=== PATIENT | female | born 1965 | race Caucasian/White ===

== ENCOUNTER 2024-12-01 15:00 | Outpatient (REF) | payer OTHER, SELFPAY ==
--- NOTE | ~2024-12-01 | XR_ITS ---
EXAMINATION: XR KNEE, RIGHT CLINICAL INFORMATION: M17.11 - Unilateral primary osteoarthritis, right knee COMPARISON: None available. TECHNIQUE: Two views of the right knee. FINDINGS: There is mild loss of the compartment joint space with periarticular spurring in the medial and lateral compartments. No abnormal joint effusion or loose bodies seen. No acute fracture or lytic process. The soft tissues are normal. XR/XR knee RT 2V IMPRESSION: Degenerative changes of the tricompartment without any visible acute fracture or dislocation. Electronically signed by: Mckinley De Guzman MD 12/02/2024 09:42 AM EDT
--- NOTE | ~2024-12-01 | XR_ITS ---
EXAMINATION: XR HIP, LEFT CLINICAL INFORMATION: M16.9 - Osteoarthritis of hip, unspecified COMPARISON: None available. TECHNIQUE: Two views of the left hip. FINDINGS: There is severe loss of left hip joint space with periarticular spurring. No visible acute fracture, dislocation or subluxation seen. The soft tissues are normal. XR/XR hip LT min 2V IMPRESSION: Degenerative changes left hip joint. No visible acute fracture or dislocation seen. Electronically signed by: Mckinley De Guzman MD 12/02/2024 09:44 AM EDT
--- NOTE | ~2024-12-01 | XR_ITS ---
EXAMINATION: Lumbar spine 5 views. CLINICAL INDICATION: Spondylosis without myelopathy or radiculopathy. COMPARISON: None. FINDINGS: There is maintained lumbar lordosis with mild dextroscoliosis mid dorsal spine. There is loss of disc height at L2-3, L3-4 disc levels with moderate spondylosis on the left at the L3-4 disc level. No visible acute fracture, lytic or sclerotic process seen. The soft tissues are normal. Paravertebral soft tissues are normal. SI joints are symmetrical and normal. XR/XR lumbar spine 4V min IMPRESSION: Dextroscoliosis with degenerative disc changes L3-4 and L2-3 disc levels. There is mild spondylosis at these disc levels. No visible acute fracture or dislocation seen. Electronically signed by: Mckinley De Guzman MD 12/02/2024 09:52 AM EDT
== END 2024-12-01 15:01 | disposition home or self-care (01) ==
LOC: HO.XRAY 15:00
PROVIDERS: PCP Internal Medicine; Referring Provider Internal Medicine; Visit Provider Anesthesiology
DX: M16.9 Osteoarthritis of hip, unspecified (principal); M47.816 Spondylosis without myelopathy or radiculopathy, lumbar region; M17.11 Unilateral primary osteoarthritis, right knee; M25.561 Pain in right knee; M16.11 Unilateral primary osteoarthritis, right hip
CPT/HCPCS: 72110; 73502; 73560; 99202

== ENCOUNTER 2024-12-01 15:00 | Outpatient (AMB) | payer OTHER, SELFPAY ==
--- NOTE | 2024-12-01 15:02 | A.OFFVIS_ITS ---
Vital Signs 12/01/24 15:06 Weight 134 lb BP 158/82 H Blood Pressure Location Lt brachial Position Sitting Respiration 20 Pulse 64 Pulse Source Pulse Oximeter Pulse Oximetry (%) 100 Oxygen Delivery Method Room Air Intake Visit Reasons: Hip Pain/Osteoarthritis Elementary Secretary Required: No Allergies latex Allergy (Unknown, Verified 12/01/24 15:08) Rash HPI Comments Details: Mildred is very pleasant 59 years old female who presents in my office with complains on multiple pain generators. She reports pain in posterior neck, she reports pain in the lower back pain in the left hip pain in the right knee pain in bilateral shoulders, pain in the right hand, and pain in the left foot. She also complains on pain in the left index finger. She reports that this pain started decades ago. She does not know what is the cause of the problem. In the distant past she had ACL rupture and sequential repair of the ACL of the right knee. She reports in different areas pain 5/10 and 4/10 to 7/10. Because of her pain she can not sleep normally, she can not do activities of daily living, she is able plus-minus to do take care of herself but she can not function normally. She is currently unemployed. She walks with a cane. Weather changes and motions aggravate her pain. Heat applications cold applications and oral medications like ibuprofen and Tylenol Arthritis helps her pain. In terms of tissue damage he describes her pain as throbbing shooting lancinating sharp pinching cramping hot burning tingling sore hurting aching heavy exhausting sickening fearful spreading radiating and cold sensation. She was prescribed gabapentin 400 mg b.i.d. for her pain as well. She had in the distant past x-rays of the right knee and left hip. She had MRI of the knee but [facility] MRI of the cervical or lumbar spine. She had extensive physical therapy with knee us and chiropractic manipulation for the left hip. It did not help he r pain. She was offered right total knee replacement however she refused because of the social circumstances. She states that she can not receive any help from relatives of friend. She went to [facility] and received serious of platelet rich plasma injections. None of it helps her pain. Her past medical history significant for headaches, fatigue, dizziness and fainting, history of vaginal herpes, mental illness in form of depression and anxiety, history of heart palpitations history of anemia history of kidney stones history of kidney insufficiency. She also suffering from arthritis. Past surgical history significant for colon resection during the prolapse surgery. As mentioned above she had ACL repair in 1999. She also had hardware removed from the ACL on the right. Social history she is not working, she denies smoking cigarettes admits drinking alcohol every day she drinks 1 cup of coffee a day and she denies recreational drugs Review of Systems Const All systems reviewed & are unremarkable except as noted in HPI and below ENT Reports Normal hearing present Neuro Reports Normal hearing present, Denies Abnormal speech present, Denies confusion and Denies Sensory deficit (Neuro) Psych Denies confusion Physical Exam Vital Signs: Last Vital Signs Pulse 64 12/01/24 15:06 Resp 20 12/01/24 15:06 BP 158/82 H 12/01/24 15:06 Pulse Ox 100 12/01/24 15:06 Oxygen Delivery Method Room Air 12/01/24 15:06 Const General: no acute distress; No confusion Orientation/consciousness: patient oriented x3 and No confusion Eyes General: appearance normal, both eyes and all related structures Pupils: Equal, round and reactive pupils present EOM: EOMs intact bilaterally Neck Other: Flexing neck forward and flexing backwards both aggravate the pain however flexing forward aggravate pain more than flexing backwards. Neck: Yes full ROM Chest Chest palpation & inspection: normal inspection of the chest Resp Effort & Inspection: normal respiratory effort, able to speak in complete sentences, normal respiratory pattern, no audible wheezes and no cough Cardio Jugular venous distension: no JVD GI Inspection: Yes normal to inspection Back/Spine/Pelvis Other: Flexing forward demonstrates remarkable flexibility, flexing backwards is painful. Loading test is positive bilaterally. Neuro General: patient oriented x3, gait normal and No confusion Cranial nerves: Yes CN's II-XII intact bilaterally, Yes Equal, round and reactive pupils present, Yes Normal hearing present and Yes Ability to bilaterally elevate shoulders present Speech: No Abnormal speech present Gait exam (Neuro): Normal gait present Motor exam (neuro): 5/5 motor strength present throughout Sensory Exam: No Sensory deficit (Neuro) Extrem General: No pedal edema Psych Speech and movement: Normal speech and movement present Affect: normal affect Attitude: cooperative Thought process: Normal thought process present Thought content: Normal thought content present Insight: Good insight present (Psych) Judgement: Good judgement present (Psych) Assessment & Plan Assessment & Plan (1) Hip osteoarthritis: Code(s): M16.9 - Osteoarthritis of hip, unspecified Category: Medical (2) Osteoarthritis of right knee: Code(s): M17.11 - Unilateral primary osteoarthritis, right knee Category: Medical (3) Right knee pain: Code(s): M25.561 - Pain in right knee Category: Medical (4) Spondylosis of lumbar region without myelopathy or radiculopathy: Code(s): M47.816 - Spondylosis without myelopathy or radiculopathy, lumbar region Category: Medical Plan I will schedule this patient for left hip x-ray, right knee x-ray, and x-ray of the lumbar spine. I will see this patient in 2 weeks. I can offer her therapeutic left hip injection, I can offer her potentially genicular nerve blocks for the right knee, if her right knee will be demonstrating good results from genicular nerve block radiofrequency ablation can not be employed. Alternatively sprint PNS or cure on X PNS can not be offered to the patient. As of her lower back pain 1st start if my suspicion is right that she is suffering from spondylosis of the lumbar spine will be diagnostic medial branch block L3- L4 dorsal ramus L5. Orders: Orders XR hip LT min 2V Today M16.9 - Osteoarthritis of hip, unspecified XR knee RT 3V Today M17.11 - Unilateral primary osteoarthritis, right knee, M25.561 - Pain in right knee XR lumbar spine 4V min Today M47.816 - Spondylosis without myelopathy or radiculopathy, lumbar region Patient Instructions: I here by testify that I spent 45 minutes in conversation with this patient as well as planning her care and organizing this note. Coding Level of Care Code New Pt Level 4 (17999) Diagnoses Hip osteoarthritis M16.9 Osteoarthritis of right knee M17.11 Right knee pain M25.561 Spondylosis of lumbar region without myelopathy or radiculopathy M47.816
[2024-12-01 15:06] VITALS: BP 158/82; PULSE 64; RESP 20; O2SAT 100
--- OUTSIDE RECORDS SUMMARY | 2024-12-01 15:08 | XMS_ITS | Encounter Summary ---
Author Organization [facility], Address [address] [place] [address] Phone Care Team Providers Care Communication Center Coordinator Name Role Phone Amaya Rasmussen MD Primary Care Provider [phone] Encounter Details Date Type Department Care Team (Late st Contact Info) Description 01/16/2023 Documentation Only [facility] [address] [place] [address] [place], [place] [address] [place] [address] Social History Tobacco Use Types Packs/Day Years Used Date Smoking Tobacco: Light Smoker Alcohol Use Standard Drinks/Week Comments Yes 0 (1 standard drink = 0.6 oz pur e alcohol) Comments Unknown Sex and Gender Information Value Date Recorded Sex Assigned at Female 07/15/2020 8:39 AM EST Legal Sex Female 10:43 AM EST Gender Identity Female 07/15/2020 8:39 AM EST Sexual Orientation Choose not to disclose 2022 11:02 AM EDT documented as of this encounter Plan of Treatment Upcoming Encounters Date Type Department Care Team (Late st Contact Info) Description 03/23/2025 3:00 PM EDT Office Visit [facility] [address] [place] [address] Yunior Theodore [address] [place] [address] documented as of this encounter Visit Diagnoses Not on filedocumented in this encounter Care Teams Communication Center Coordinator Relationship Specialty Start Date End Date Amaya Rasmussen MD [address], [address] [place] [address] PCP - General Internal Medicine 12/25/23 documented as of this encounter
== END 2024-12-01 15:40 | disposition home or self-care (01) ==
LOC: HO.PMC 15:00
PROVIDERS: PCP Internal Medicine; Referring Provider Internal Medicine; Visit Provider Anesthesiology
DX: M16.9 Osteoarthritis of hip, unspecified (principal); M17.11 Unilateral primary osteoarthritis, right knee; M25.561 Pain in right knee; M47.816 Spondylosis without myelopathy or radiculopathy, lumbar region
CPT/HCPCS: 99204

== ENCOUNTER → 2024-12-01 15:49 | Outpatient (BNV) | payer OTHER, SELFPAY | PROVIDERS: PCP Internal Medicine; Referring Provider Internal Medicine; Visit Provider Radiology Diagnostic Radiology | DX: M51.369 Other intervertebral disc degeneration, lumbar region without mention of lumbar back pain or lower extremity pain (principal); M16.12 Unilateral primary osteoarthritis, left hip; M17.11 Unilateral primary osteoarthritis, right knee; M41.86 Other forms of scoliosis, lumbar region | CPT/HCPCS: 72110; 73502; 73560 ==

== ENCOUNTER 2024-12-15 12:59 | Outpatient (AMB) | payer OTHER, SELFPAY ==
[2024-12-15 13:03] VITALS: BP 147/77; PULSE 71; RESP 18; O2SAT 99
--- NOTE | 2024-12-15 13:03 | MHC.OFFVIS ---
Vital Signs 12/15/24 13:03 Weight 134 lb BP 147/77 H Blood Pressure Location Lt brachial Position Sitting Respiration 18 Pulse 71 Pulse Source Pulse Oximeter Pulse Oximetry (%) 99 Oxygen Delivery Method Room Air Intake Visit Reasons: [address] Alexander Mothers Helper Required: No Allergies latex Allergy (Unknown, Verified 12/15/24 13:03) Rash HPI Comments Details: Mildred is back in my office to assess the results of the multiple x-rays I sent her for in [facility]. The results of the x-ray dictated as below. In summary she has advanced left hip osteoarthritis, she has [id number] right hip arthritis. She also has on the x-ray of the lumbar spine scoliosis and spondylosis of the lumbar spine. I offered this patient to go for hip replacement. Unfortunately she lives alone and she has multiple cats in her household and she can not trust anyone to take care of them so she can not go for the hip replacement. I offered her then to perform therapeutic intra-articular hip steroid injection just perform it once. Patient agreed to go for this procedure. We also discuss possibility of treatment of her knee with genicular nerve blocks and possibility of treating the knee with the RFA of the genicular nerves however patient is less concerned now about her knee. Prior: She reports pain in posterior neck, she reports pain in the lower back pain in the left hip pain in the right knee pain in bilateral shoulders, pain in the right hand, and pain in the left foot. pain started decades ago. She does not know what is the cause of the problem. In the distant past she had ACL rupture and sequential repair of the ACL of the right knee. She reports in different areas pain 5/10 and 4/10 to 7/10. Heat applications cold applications and oral medications like ibuprofen and Tylenol Arthritis helps her pain. In terms of tissue damage he describes her pain as throbbing shooting lancinating sharp pinching cramping hot burning tingling sore hurting aching heavy exhausting sickening fearful spreading radiating and cold sensation. She was prescribed gabapentin 400 mg b.i.d. for her pain as well. She had in the distant past x-rays of the right knee and left hip. She had MRI of the knee but never MRI of the cervical or lumbar spine. She had extensive physical therapy with knee us and chiropractic manipulation for the left hip. It did not help her pain. She was offered right total knee replacement however she refused because of the social circumstances. She states that she can not receive any help from relatives of friend. She went to [facility] and received series of platelet rich plasma injections. None of it helps her pain. Review of Systems Const All systems reviewed & are unremarkable except as noted in HPI and below ENT Reports Normal hearing present Neuro Reports Normal hearing present, Denies Abnormal speech present, Denies confusion and Denies Sensory deficit (Neuro) Psych Denies confusion Physical Exam Vital Signs: Last Vital Signs Pulse 71 12/15/24 13:03 Resp 18 12/15/24 13:03 BP 147/77 H 12/15/24 13:03 Pulse Ox 99 12/15/24 13:03 Oxygen Delivery Method Room Air 12/15/24 13:03 Const General: no acute distress; No confusion Orientation/consciousness: patient oriented x3 and No confusion Eyes General: appearance normal, both eyes and all related structures Pupils: Equal, round and reactive pupils present EOM: EOMs intact bilaterally Neck Other: Flexing neck forward and flexing backwards both aggravate the pain however flexing forward aggravate pain more than flexing backwards. Neck: Yes full ROM Chest Chest palpation & inspection: normal inspection of the chest Resp Effort & Inspection: normal respiratory effort, able to speak in complete sentences, normal respiratory pattern, no audible wheezes and no cough Cardio Jugular venous distension: no JVD GI Inspection: Yes normal to inspection Back/Spine/Pelvis Other: Flexing forward demonstrates remarkable flexibility, flexing backwards is painful. Loading test is positive bilaterally. Neuro General: patient oriented x3, gait normal and No confusion Cranial nerves: Yes CN's II-XII intact bilaterally, Yes Equal, round and reactive pupils present, Yes Normal hearing present and Yes Ability to bilaterally elevate shoulders present Speech: No Abnormal speech present Gait exam (Neuro): Normal gait present Motor exam (neuro): 5/5 motor strength present throughout Sensory Exam: No Sensory deficit (Neuro) Extrem General: No pedal edema Psych Speech and movement: Normal speech and movement present Affect: normal affect Attitude: cooperative Thought process: Normal thought process present Thought content: Normal thought content present Insight: Good insight present (Psych) Judgement: Good judgement present (Psych) Results Reviewed Results Reviewed: X-ray lumbar spine November 2024. There is maintained lumbar lordosis with mild dextroscoliosis mid dorsal spine. There is loss of disc height at L2-3, L3-4 disc levels with moderate spondylosis on the left at the L3-4 disc level. No visible acute fracture, lytic or sclerotic process seen. The soft tissues are normal. Paravertebral soft tissues are normal. SI joints are symmetrical and normal. XR lumbar spine 4V min IMPRESSION: Dextroscoliosis with degenerative disc changes L3-4 and L2-3 disc levels. There is mild spondylosis at these disc levels. No visible acute fracture or dislocation seen. XR KNEE, RIGHT CLINICAL INFORMATION: M17.11 - Unilateral primary osteoarthritis, right knee COMPARISON: None available. TECHNIQUE: Two views of the right knee. FINDINGS: There is mild loss of the compartment joint space with periarticular spurring in the medial and lateral compartments. No abnormal joint effusion or loose bodies seen. No acute fracture or lytic process. The soft tissues are normal. XR knee RT 2V IMPRESSION: Degenerative changes of the tricompartment without any visible acute fracture or dislocation. - Osteoarthritis of hip, unspecified COMPARISON: None available. TECHNIQUE: Two views of the left hip. FINDINGS: There is severe loss of left hip joint space with periarticular spurring. No visible acute fracture, dislocation or subluxation seen. The soft tissues are normal. XR hip LT min 2V IMPRESSION: Degenerative changes left hip joint. No visible acute fracture or dislocation seen. Assessment & Plan Assessment & Plan (1) Hip osteoarthritis: Code(s): M16.9 - Osteoarthritis of hip, unspecified Category: Medical (2) Osteoarthritis of right knee: Code(s): M17.11 - Unilateral primary osteoarthritis, right knee Category: Medical (3) Right knee pain: Code(s): M25.561 - Pain in right knee Category: Medical (4) Spondylosis of lumbar region without myelopathy or radiculopathy: Code(s): M47.816 - Spondylosis without myelopathy or radiculopathy, lumbar region Category: Medical (5) Osteoarthritis of left hip: Code(s): M16.12 - Unilateral primary osteoarthritis, left hip Category: Medical (6) Left hip pain: Code(s): M25.552 - Pain in left hip Category: Medical Plan Because she lives alone it is hard to offer her anything which could be changing her situation. She can not go for total knee or total hip replacement. Same thing could be said about neuromodulation for this patient. She can not take care of herself while incapacitated. I offered her to perform diagnostic and therapeutic intra-articular hip steroid injection. If she would have good pain relief after this procedure in the left hip I can not repeated until it will stop her pain improvement. She denied in the past possibility of total hip replacement she denied possibility of total knee replacement. In the future we can concentrate on her lower back pain with the diagnostic medial branch block. Patient Instructions: I here by testify that I spent 35 minutes in conversation with this patient as well as evaluating her diagnostic studies as well as planning her care and organizing this note. Coding Level of Care Code Est Pt Level 4 (42292) Diagnoses Hip osteoarthritis M16.9 Osteoarthritis of right knee M17.11 Right knee pain M25.561 Spondylosis of lumbar region without myelopathy or radiculopathy M47.816 Osteoarthritis of left hip M16.12 Left hip pain M25.552
--- OUTSIDE RECORDS SUMMARY | 2024-12-15 14:53 | XMS_ITS | Clinical Summary ---
Author Organization [facility], Address [address] [place] [address] [place] [address] Phone Care Team Providers Care Roll Coverer Name Role Phone Amaya Rasmussen MD Primary Care Provider [phone] Allergies Active Allergy Reactions Criticality Noted Date Comments Cat Dander 07/18/2020 Latex 07/18/2020 Medications No known medications Active Problems Problem Noted Date Diagnosed Date Renal insufficiency 07/18/2020 Stage 3a chronic kidney disease 07/18/2020 Hyperkalemia 07/18/2020 Fibromyalgia Resolved Problems Problem Noted Date Diagnosed Date Resolved Date Vitamin D deficiency 07/18/2020 022 Immunizations Immunization Administration Dates Next Due Influenza, Unspecified 05/03/2020 Family History Medical History Relation Comments Cancer Mother Heart failure Mother Relation Status Comments Mother Social History Tobacco Use Types Packs/Day Years [...] not to disclose 2022 11:02 AM EDT Last Filed Vital Signs Vital Sign Reading Time Taken Comments Blood Pressure 118/74 12/24/2023 2:42 PM EDT Pulse 72 12/24/2023 2:42 PM EDT Temperature - - Respiratory Rate - - Oxygen Saturation - - Inhaled Oxygen Concentration - - Weight - - Height - - Body Mass Index - - Plan of Treatment Upcoming Encounters Date Type Department Care Team (Late st Contact Info) Description 03/23/2025 3:00 PM EDT Office Visit [facility] [address] [place] [address] Yunior Theodore DO [address] [place] [address] Health Maintenance Due Date Last Done Comments Breast Cancer Screening 1965 Pneumococcal Vaccine: 50+ Ye ars (1 of 2 - PCV) 1982 Colorectal Cancer Screening: Annual FOBT 2012 Colorectal Cancer Screening: Colonoscopy 2012 Colorectal Cancer Screening: Sigmoidoscopy 2012 Influenza Vaccine (Season Ended) 2025 05/03/20 20 Hepatitis B Vaccine Aged Out No longe r eligible based on patient's age to complete this topic Insurance [facility] Care Teams Roll Coverer Relationship Specialty Start Date End Date Amaay Rasmussen MD [address], [facility] [address] [place] [address] PCP - General Internal Medicine 12/25/23
== END 2024-12-15 13:29 | disposition home or self-care (01) ==
LOC: HO.PMC 13:00
PROVIDERS: PCP Internal Medicine; Visit Provider Anesthesiology
DX: M16.9 Osteoarthritis of hip, unspecified (principal); M17.11 Unilateral primary osteoarthritis, right knee; M25.561 Pain in right knee; M47.816 Spondylosis without myelopathy or radiculopathy, lumbar region; M16.12 Unilateral primary osteoarthritis, left hip; M25.552 Pain in left hip
CPT/HCPCS: 99214

== ENCOUNTER → 2024-12-15 12:59 | Outpatient (BNVA) | payer OTHER, SELFPAY | PROVIDERS: PCP Internal Medicine; Visit Provider Anesthesiology | DX: M17.11 Unilateral primary osteoarthritis, right knee (principal); M16.0 Bilateral primary osteoarthritis of hip; M25.561 Pain in right knee; M25.552 Pain in left hip; M47.816 Spondylosis without myelopathy or radiculopathy, lumbar region | CPT/HCPCS: 99212 ==

== ENCOUNTER 2025-01-13 13:50 | Outpatient (AMB) | payer OTHER, SELFPAY ==
--- NOTE | 2025-01-13 14:07 | A.OFFVIS_ITS ---
Intake Visit Reasons: New Pt - Left Hip OA Intake Note: Mildred is a 59 year old female who presents today for her left hip pain. she reports that her left hip has been painful for about 1 year now. 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 Her pain has become more consistent. She did QC [employer] that was done in September - this was not significantly helpful. Hx of Left hip dislocation while walking about 30 years ago. She reports that she has had multiple dislocations of hip and shoulders. She also has Scoliosis. Allergies latex Allergy (Unknown, Verified 01/13/25 15:47) Rash HPI HPI New Pt - Left Hip OA: Details: Mildred is a 59-year-old woman who comes in today with a worsening history of left hip pain. It has gotten point where she cane and can not of difficulty. She states that daily activities extremely difficult. She localizes the pain to left groin. She has been having worsening pain now for over the past year. Denies any recent injury. She states she is otherwise healthy. She enjoys walking and taking care of her cats. She has been preoccupied with the prospect of surgery because she is worried that no help her take care of her animals at home but she has found somebody to do that and so is interested in discussing surgical options for alleviation pain. [facility] Medical History (Updated 01/13/25 @ 14:19 by Sinai Amaro [facility]) Amputation of finger Surgical History (Updated 01/13/25 @ 14:19 by Sinai Amaro [facility]) S/P reconstruction of ACL of right knee using hamstring autograft History of eye surgery (~2021) History of colon resection (~2018) Physical Exam Extrem Other: A pleasant woman in no acute distress. She is breathing comfortably on room air and has a antalgic gait with positive Trendelenburg gait on the left. She has p ositive impingement test and a positive Stinchfield. She has 2+ dorsalis pedis pulse. Skin is clean dry and intact and she is firing her EHL/gastrocs/tibialis anterior. Results Reviewed Results Reviewed: I personally reviewed relevant radiographs. Severe osteoarthritis of the left hip with borderline dysplasia/shallow acet abulum Assessment & Plan Assessment & Plan (1) Osteoarthritis of left hip: Code(s): M16.12 - Unilateral primary osteoarthritis, left hip Category: Medical Plan: This is a 59-year-old woman with left hip osteoarthritis. The degenerative changes are severe and she is limited both in daily activities and in her ability to engage in recreational activities. She is relatively healthy individual. She does have a history of partial colon resection at [facility] about 7 years ago and a history of an ACL reconstruction on the right knee. We had a long discussion regarding her limitations and it is clear that she would benefit from arthroplasty and that she is severely limited in her current state. I reviewed her radiographs with her and I reviewed the risks, benefits and alternatives of surgery with her. I discussed the risks benefits and alternatives including but not limited to the risk of pain, infection, stiffness, fracture, dislocation, need for further surgery as well as potential medical complications such as blood clots, pulmonary embolism and cardiac complications. She expressed understanding and we will begin the preoperative clearance process. Coding Level of Care Code New Pt Level 4 (74905) Diagnoses Osteoarthritis of left hip M16.12
== END 2025-01-13 15:02 | disposition home or self-care (01) ==
LOC: HO.HOS 13:50
PROVIDERS: PCP Internal Medicine; Visit Provider Orthopaedic Surgery
DX: M16.12 Unilateral primary osteoarthritis, left hip (principal)
CPT/HCPCS: 99204

== ENCOUNTER → 2025-01-13 13:50 | Outpatient (BNVA) | payer OTHER, SELFPAY | PROVIDERS: PCP Internal Medicine; Visit Provider Orthopaedic Surgery | DX: M16.12 Unilateral primary osteoarthritis, left hip (principal); M25.552 Pain in left hip; M17.11 Unilateral primary osteoarthritis, right knee; M25.561 Pain in right knee; M47.816 Spondylosis without myelopathy or radiculopathy, lumbar region | CPT/HCPCS: 99202; 99212 ==

== ENCOUNTER 2025-01-13 15:05 | Outpatient (AMB) | payer OTHER, SELFPAY ==
[2025-01-13 15:49] VITALS: BP 140/83; PULSE 59; RESP 18; O2SAT 100
--- NOTE | 2025-01-13 15:49 | A.OFFVIS_ITS ---
Vital Signs 01/13/25 15:49 Weight 135 lb BP 140/83 H Blood Pressure Location Lt brachial Position Sitting Respiration 18 Pulse 59 Pulse Source Pulse Oximeter Pulse Oximetry (%) 100 Oxygen Delivery Method Room Air Intake Visit Reasons: Knee Pain Allergies latex Allergy (Unknown, Verified 01/13/25 15:47) Rash HPI Comments Details: Mildred is back in my office for the follow-up. In summary she has advanced left hip osteoarthritis, she has qvoz-rw-skemfcan right hip arthritis. She also has on the x-ray of the lumbar spine scoliosis and spondylosis of the lumbar spine. She is referred to Orthopedic surgery for consideration of hip replacement. She found a way to help her to recover after the procedure. Her social circumstances are very difficult she lives alone. She requested me to schedule her for the genicular nerve block in preparation for RFA, I explained to her that she may address the knee issue to her orthopedic surgery as well. If no treatment will be offered by Orthopedic surgery for her knee I will be glad to perform genicular nerve block and then follow on RFA of her genicular blocks. My offer for genicular nerve block still stands for the patient if the orthopedic surgery decides not to do anything with her knee. Prior: She reports pain in posterior neck, she reports pain in the lower back pain in the left hip pain in the right knee pain in bilateral shoulders, pain in the right hand, and pain in the left foot. pain started decades ago. She does not know what is the cause of the problem. In the distant past she had ACL rupture and sequential repair of the ACL of the right knee. She reports in different areas pain 5/10 and 4/10 to 7/10. Heat applications cold applications and oral medications like ibuprofen and Tylenol Arthritis helps her pain. In terms of tissue damage he describes her pain as throbbing shooting lancinating sharp pinching cramping hot burning tingling sore hurting aching heavy exhausting sickening fearful spreading radiating and cold sensation. She was prescribed gabapentin 400 mg b.i.d. for her pain as well. She had in the distant past x- rays of the right knee and left hip. She had MRI of the knee but never MRI of the cervical or lumbar spine. She had extensive physical therapy with knee us and chiropractic manipulation for the left hip. It did not help her pain. She was offered right total knee replacement however she refused because of the social circumstances. She states that she can not receive any help from relatives of friend. She went to [facility] and received series of platelet rich plasma injections. None of it helps her pain. [facility] Medical History (Updated 01/13/25 @ 14:19 by Sinai Amaro CMA) Amputation of finger Surgical History (Updated 01/13/25 @ 14:19 by Sinai Amaro CMA) S/P reconstruction of ACL of right knee using hamstring autograft History of eye surgery (~2021) History of colon resection (~2018) Review of Systems Const All systems reviewed & are unremarkable except as noted in HPI and below ENT Reports Normal hearing present Neuro Reports Normal hearing present, Denies Abnormal speech present, Denies confusion and Denies Sensory deficit (Neuro) Psych Denies confusion Physical Exam Vital Signs: Last Vital Signs Pulse 59 01/13/25 15:49 Resp 18 01/13/25 15:49 BP 140/83 H 01/13/25 15:49 Pulse Ox 100 01/13/25 15:49 Oxygen Delivery Method Room Air 01/13/25 15:49 Const General: no acute distress; No confusion Orientation/consciousness: patient oriented x3 and No confusion Eyes General: appearance normal, both eyes and all related structures Pupils: Equal, round and reactive pupils present EOM: EOMs intact bilaterally Neck Other: Flexing neck forward and flexing backwards both aggravate the pain however flexing forward aggravate pain more than flexing backwards. Neck: Yes full ROM Chest Chest palpation & inspection: normal inspection of the chest Resp Effort & Inspection: normal respiratory effort, able to speak in complete sentences, normal respiratory pattern, no audible wheezes and no cough Cardio Jugular venous distension: no JVD GI Inspection: Yes normal to inspection Back/Spine/Pelvis Other: Flexing forward demonstrates remarkable flexibility, flexing backwards is painful. Loading test is positive bilaterally. Neuro General: patient oriented x3, gait normal and No confusion Cranial nerves: Yes CN's II-XII intact bilaterally, Yes Equal, round and reactive pupils present, Yes Normal hearing present and Yes Ability to bilaterally elevate shoulders present Speech: No Abnormal speech present Gait exam (Neuro): Normal gait present Motor exam (neuro): 5/5 motor strength present throughout Sensory Exam: No Sensory deficit (Neuro) Extrem General: No pedal edema Psych Speech and movement: Normal speech and movement present Affect: normal affect Attitude: cooperative Thought process: Normal thought process present Thought content: Normal thought content present Insight: Good insight present (Psych) Judgement: Good judgement present (Psych) Assessment & Plan Assessment & Plan (1) Hip osteoarthritis: Code(s): M16.9 - Osteoarthritis of hip, unspecified Category: Medical (2) Osteoarthritis of right knee: Code(s): M17.11 - Unilateral primary osteoarthritis, right knee Category: Medical (3) Right knee pain: Code(s): M25.561 - Pain in right knee Category: Medical (4) Spondylosis of lumbar region without myelopathy or radiculopathy: Code(s): M47.816 - Spondylosis without myelopathy or radiculopathy, lumbar region Category: Medical (5) Osteoarthritis of left hip: Code(s): M16.12 - Unilateral primary osteoarthritis, left hip Category: Medical (6) Left hip pain: Code(s): M25.552 - Pain in left hip Category: Medical Plan She found the way to adjust her life circumstances and she is admitted for total hip replacement. She is asking me to perform some injections for her knee at this time however it is quite on practical to go for diagnostic genicular nerve block because if I will put a booking order now it will be scheduled approximately in 2-3 months and this is exactly the time when she is scheduled to have a surgery on her hip. I explained to her that she needs to come back after hip surgery and we will perform genicular nerve block. Alternatively she may discuss her knee condition with her orthopedic surgeon as well. I explained to her that any decision she will make I will support. Coding Level of Care Code Est Pt Level 3 (17956) Diagnoses Hip osteoarthritis M16.9 Osteoarthritis of right knee M17.11 Right knee pain M25.561 Spondylosis of lumbar region without myelopathy or radiculopathy M47.816 Osteoarthritis of left hip M16.12 Left hip pain M25.552
--- OUTSIDE RECORDS SUMMARY | 2025-01-13 15:50 | XMS_ITS | Encounter Summary ---
Author Organization [facility], Address [address] [place] [address] Phone Care Team Providers Care Gate Mortiser Operator Name Role Phone Amaya Rasmussen MD Primary Care Provider [phone] Encounter Details Date Type Department Care Team (Late st Contact Info) Description 01/16/2023 Documentation Only [facility] [address] [place] [address] [place] [address] [place] [address] Social History Tobacco Use Types [...] Visit [facility] [address] [place] [address] Yunior Theodore [address] [place] [address] documented as of this encounter Visit Diagnoses Not on filedocumented in this encounter Care Teams Gate Mortiser Operator Relationship Specialty Start Date End Date Amaya Rasmussen MD [address], [address] [address] [place] [address] PCP - General Internal Medicine 12/25/23 documented as of this encounter
== END 2025-01-13 15:53 | disposition home or self-care (01) ==
LOC: HO.PMC 15:05
PROVIDERS: PCP Internal Medicine; Visit Provider Anesthesiology
DX: M25.561 Pain in right knee (principal); M47.816 Spondylosis without myelopathy or radiculopathy, lumbar region; M16.12 Unilateral primary osteoarthritis, left hip; M25.552 Pain in left hip
CPT/HCPCS: 99213

== ENCOUNTER 2025-02-22 14:00 | Outpatient (RCR) | payer OTHER, SELFPAY ==
--- NOTE | 2025-02-07 11:54 | MHC.PT.EP ---
[facility] [place] Office [place] Office [place] Office [address] [phone] F: [phone] F: [phone] F: [phone] F: [phone] Physical Therapy Plan of Care Date of Evaluation: 02/07/25 Date of Surgery: n/a Diagnosis: unilateral OA L hip prehab Assessment: Patient is a 59 year old female presenting to PT with complaints of pain in her L hip. Pt reports onset of pain began over a year ago due to insidious onset. She presents today with impairments in pain, hip ROM, hip strength. Pt's current occupation is none, with baseline physical activities including ambulating, stair negotiation, ADLs. 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 Clinical presentation today is most consistent with signs and sx associated with L hip pain and pt will benefit from skilled PT 1 week x 2 weeks to address the following problems and impairments noted upon evaluation: pain, hip ROM, hip strength. These problems limit the patient with the following functional activities: ambulating, stair negotiation, ADLs. The prescribed treatment plan of care is medically necessary. Co-morbidities of none were identified and taken into considerations of plan of care. Pt was educated on HEP, role of PT, prognosis, POC. Frequency and Duration: The patient will be seen 1 x week x 2 weeks Short Term Goals: Pt will be compliant with initial exercises in 1 week. Assisted Goals: Pt will demonstrate understanding and compliance with HEP to continue until surgery in 2 weeks to maximize strength before surgery. Treatment Plan: Modalities to reduce pain, spasms and effusion. Manual therapy to restore motion and function. Therapeutic exercise to improve strength and flexibility. Neuromuscular re-education for posture and balance. Therapeutic activities to return to functional activities of daily living. Electronically signed by: Maine Rowe, PT, DPT, ATC Please sign and return to therapist. Thank you for your referral.
--- NOTE | 2025-02-22 14:23 | MHC.PT.DC ---
[facility] [place] Office [place] Office [place] Office [address] [phone] F: [phone] F: [phone] F: [phone] F: [phone] Physical Therapy Discharge Report Diagnosis: unilateral OA L hip prehab Date of Surgery: n/a Date of Evaluation: 02/07/25 Date of Discharge: 02/22/25 Treatments to Date: 2 Cancellations to Date: 1 No Shows to Date: 0 Discharge Status: Recommend MD Follow-up Discharge Summary: 02/22/2025: Pt is significantly limited by pain with the amount of exercise she can participate in. She cannot complete many reps with any exercise often not even being able to complete more than 10 reps of any exercise. She is in need of a hip replacement and is planning to get this in the coming months. Based on her lack of tolerance to exercise it does not seem appropriate to continue with PT at this time as it is causing her more pain. I recommend to her to continue with some low level walking and small amounts of strengthening as she tolerates up until her surgery. I also educated her that she should consider using a walker prior to surgery to maximize her safety with walking as she admits she has had a couple falls. We will d/c her from skilled PT at this time and anticipate her returning after her total hip replacement. Electronically signed by: Maine Rowe, PT, DPT, ATC Please sign and return to therapist. Thank you for your referral.
== END 2025-02-22 14:24 | disposition home or self-care (01) ==
LOC: HO.PTCHIC 14:00
PROVIDERS: PCP Internal Medicine; Visit Provider Physician Assistant
DX: M16.12 Unilateral primary osteoarthritis, left hip (principal)
CPT/HCPCS: 97110; 97161

== ENCOUNTER → 2025-03-11 09:03 | Outpatient (BNVA) | payer OTHER, SELFPAY | PROVIDERS: PCP Internal Medicine | DX: Z01.818 Encounter for other preprocedural examination (principal) ==

== ENCOUNTER 2025-04-07 08:10 | Outpatient (REF) | payer OTHER, SELFPAY ==
--- NOTE | ~2025-04-07 | XR_ITS ---
EXAMINATION: XR HIP, LEFT CLINICAL INFORMATION: M25.552 - Pain in left hip COMPARISON: 07/03/2024. TECHNIQUE: AP view of the pelvis, and 2 views of the left hip. FINDINGS: No fracture, dislocation, or suspicious bone lesion. There is normal alignment of both joints. There is severe osteoarthrosis of the left hip joint with superior joint space loss and [id number] appearance, subchondral sclerosis and cystic changes with marginal osteophytic spurring. There appears to have been mild progression since the prior examination. Moderate osteoarthrosis of the right hip joint. Right convex lumbar scoliosis is present with degenerative spondylosis. The SI joints and sacrum appear normal. There are anastomotic suture lines in the left mid pelvis. There is an abutting surgical staple. Soft tissues otherwise appear normal. XR/XR hip LT min 2V IMPRESSION: 1. Severe osteoarthrosis of the LEFT hip joint, mildly progressed from the prior examination. 2. Moderate osteoarthrosis of the RIGHT hip joint. Electronically signed by: Trenton Renee MD 04/07/2025 11:45 AM EDT
[2025-04-07 12:34] LABS: MANUAL DIFF FLAG NO
[2025-04-07 14:09] LABS: Hematocrit 41.5 % (37.0-47.0); Hemoglobin 13.7 g/dl (12.0-16.0); Imm Gran Abs Auto 0.02 X10*3/uL (0.00-0.03); Imm Gran Pct Auto 0.2 % (0.0-0.4); Lymphocytes Absolute Auto 2.0 X10*3/uL (1.2-4.9); Mean Corpuscular HGB Conc 33.0 g/dl (31.0-35.0); Mean Corpuscular Hemoglobin 31.4 pg (27.0-33.0); Mean Corpuscular Volume 95.0 fL (80.0-98.0); NRBC Abs Auto 0.000 X10*3/uL (0.0-0.012); NRBC Pct Auto 0.0 /100WBC (0.0-0.2); Platelet Count 298 X10*3/uL (160-400); Red Blood Count 4.37 X10*6/uL (4.20-5.50); White Blood Count 8.7 X10*3/uL (4.8-10.8)
[2025-04-07 14:31] LABS: Anion Gap 13 (12-20); Blood Urea Nitrogen 13 mg/dL (9-16); Calcium 9.6 mg/dL (8.4-10.2); Carbon Dioxide 28 mmol/L (22-29); Chloride 107 mmol/L (96-108); Estimated Glomerular Filt Rate 52; Potassium 4.5 mmol/L (3.3-5.1); Sodium 143 mmol/L (135-145)
== END 2025-04-07 08:11 | disposition home or self-care (01) ==
LOC: HO.HOSX 08:10
PROVIDERS: Visit Provider Physician Assistant
DX: Z01.818 Encounter for other preprocedural examination (principal); M16.12 Unilateral primary osteoarthritis, left hip
CPT/HCPCS: 36415; 73502; 80048; 85025; 99212

== ENCOUNTER 2025-04-07 11:27 | Outpatient (AMB) | payer OTHER, SELFPAY ==
--- NOTE | 2025-04-07 10:42 | A.OFFVIS_ITS ---
Vital Signs 3 04/07/25 11:42 Height 5 ft 6.5 in Weight 135 lb BMI 21.5 Intake Visit Reasons: Pre-Op: L JAZMÍN w/NE 04/12/25 Intake Note: Mildred is a 59 year old female who presents today for a pre-operative visit to discuss LT JAZMÍN scheduled with Dr. Coto on 04/12/25. Pain management agreement reviewed and signed. Allergies latex Allergy (Unknown, Verified 04/07/25 11:42) Rash oxycodone Allergy (Verified 04/07/25 11:42) Shakiness prednisone Allergy (Verified 04/07/25 11:42) Agitated Medication List - Last Reconciled 04/11/25 by Brad Colmenares PA-C acetaminophen ER (Pain Relief (acetaminophen)) 650 mg PO BID cholecalciferol (vitamin D3) 25 mcg PO DAILY clonazepam 0.25 mg PO DAILY PRN [Folding Front Wheeled walker Duration: 99 days] gabapentin 400 mg PO BID ibuprofen 400 mg PO Q6H PRN melatonin 5 mg PO BEDTIME PRN multivitamin 1 tab PO DAILY [Raised toilet seat duration - 99 days] [SHOWER CHAIR DURATION: LIFETIME] HPI Comments Details: Ms Snow presents to the office today for Orthopedic Pre op clearance. She is scheduled for a left total hip arthroplasty with Dr. Coto on 04/12/2025. She has been experiencing left hip pain for little over a year. 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 She had PRP injections in her hip without relief. H/o colon resection Patient lives in a 1 level home with 2 cats. PCP clearance obtained : [facility] Medical History (Updated 03/08/25 @ 10:48 by Amelie Emanuel RN) Arthritis Back pain Kidney stones History of vitamin D deficiency Paresthesias Depression Memory impairment Anxiety Former tobacco use Fibromyalgia CKD (chronic kidney disease) Borderline personality disorder Optic neuritis Sjogren's disease Scoliosis Bilateral hip dysplasia Amputation of finger Surgical History (Updated 03/08/25 @ 10:41 by Amelie Emanuel RN) History of repair of ACL H/O colonoscopy S/P reconstruction of ACL of right knee using hamstring autograft History of eye surgery (~2021) History of colon resection (~2018) Social History Are you a primary home health aide caregiver to a significant other at home: No Do you presently have visiting nurse or other home services: No Patient Tobacco Use Status: Former Tobacco user Review of Systems Const All systems reviewed & are unremarkable except as noted in HPI and below Physical Exam Vital Signs: BMI result Body Mass Index 21.5 Const General: cooperative, healthy appearing, comfortable, no acute distress, well developed and alert Orientation/consciousness: patient oriented x3 HEENT Head: Yes normal to inspection, Yes normocephalic and Yes atraumatic Eyes General: appearance normal, both eyes and all related structures Neck Neck: Yes normal visual inspection and Yes no lymphadenopathy Resp Effort & Inspection: normal respiratory effort and able to speak in complete sentences Cardio Rate: regular rate Peripheral pulses: Peripheral pulses 2+ throughout GI Inspection: Yes normal to inspection Palpation (GI): Soft to palpation Skin General skin exam: no rashes or lesions noted Neuro General: patient oriented x3 Extrem Other: Left hip skin is intact without open wounds or abrasions. She walks with antalgic gait with positive Trendelenburg gait on the left. She has 2+ dorsalis pedis pulse. No evidence of venous stasis. Neurovascularly intact. Psych Appearance: grossly normal Mental Status: mental status grossly normal Results Reviewed Results Reviewed: X-rays of the left hip obtained in the office today for surgical planning. Assessment & Plan Assessment & Plan (1) Osteoarthritis of left hip: Code(s): M16.12 - Unilateral primary osteoarthritis, left hip Category: Medical Plan: Has exhausted all conservative measures consisting of lifestyle modifications, physical therapy, analgesics, corticosteroid injections and use of assisted devices and continues to have significant limitations in daily activities along with decreased quality of life. Given the patient's desire to improve their quality of life, surgical intervention consisting of joint replacement surgery is recommended at this time.? We discussed the procedure in detail today; which includes pre op preparation with labs and reviewing patients medication regimen prior to surgery. CBC/BMP and type and screen were ordered and completed prior to surgery. I discussed at length the post op course which includes physical therapy services in the hospital along with the discharge routine and the patients plan upon discharge. Patient lives alone and has a friend coming to stay with her for a few days but is unsure if she will be safe to return home versus going to rehab. I explained to the patient, once they are DC home, they will receive VNA services which will include PT 2-3x per week. We also discussed their choice for outpatient PT once they are discharged from home PT. Patient is considering [facility] but would knee transportation services. Post op DVT ppx was also discussed and the considering the patient denies history of DVT/PE she would benefit from aspirin 325 mg p.o. b.i.d. for 6 weeks. I reviewed with the patient their post op pain medication regimen along with the detailed wean program. The patient did express understanding of this and agreed to the narcotic policy. Lastly, I discussed with the patient the risks to the procedure. Risks including but not limited to infection, injury to surrounding nerves, tissue , bone, small and large vessels, stiffness, aseptic loosening, fracture, dislocation, amputation, DVT/PE along with intraoperative complications including but not limited to . The patient does express understanding, all questions were answered and the patient would like to proceed? with left total hip arthroplasty with Dr. Coto. Consents were signed and dated while in the office today.? Post-Operative Recovery Notes: -Postoperatively patient can not tolerate oxycodone. She will receive Dilaudid 2 mg p.o. along with Dilaudid 0.25 mg IV along with Celebrex and Tylenol. * DVT ppx : Aspirin * Hospital DC plan: Home versus short-term rehab * Physical Therapy: [facility] versus she can be core patient will require transportation * Walker and shower chair Rx's [facility] - Contact information given to patient with instructions on how to obtain the items. Orders: Orders 2 XR hip LT min 2V 04/07/25 M25.552 - Pain in left hip Basic Metabolic Panel 04/07/25 Z01.818 - Encounter for other preprocedural examination Complete Blood Count Auto Diff 04/07/25 Z01.818 - Encounter for other preprocedural examination Coding Level of Care Code Est Pt Level 3 (58762) Complex EM visit Add On G2211 Diagnoses Osteoarthritis of left hip M16.12
[2025-04-07 11:42] VITALS: BMI 21.5
== END 2025-04-07 12:08 | disposition home or self-care (01) ==
LOC: HO.HOS 11:28
PROVIDERS: PCP Internal Medicine; Visit Provider Physician Assistant
DX: M16.12 Unilateral primary osteoarthritis, left hip (principal)
CPT/HCPCS: 99024

== ENCOUNTER → 2025-04-07 11:29 | Outpatient (BNV) | payer OTHER, SELFPAY | PROVIDERS: Visit Provider Radiology Diagnostic Radiology | DX: M16.0 Bilateral primary osteoarthritis of hip (principal) | CPT/HCPCS: 73502 ==

== ENCOUNTER 2025-04-12 06:13 | Day surgery (SDC) | payer OTHER, SELFPAY ==
--- OUTSIDE RECORDS SUMMARY | 2025-02-14 15:12 | XMS_ITS | Clinical Summary ---
Author Organization [facility], Address [address] [place] [address] [place] [address] Phone Care Team Providers Care Physical Fitness Trainer Name Role Phone Amaya Rasmussen MD Primary Care Provider [phone] Allergies Active Allergy Reactions Criticality Noted Date [...] Office Visit [facility] [address] [place] [address] Yunior Theodore DO [address] [place] [address] Health Maintenance Due Date Last Done Comments Breast Cancer Screening 1965 Pneumococcal Vaccine: 50+ Ye ars (1 of 2 - PCV) 1982 Colorectal Cancer Screening: Annual FOBT 2012 Colorectal Cancer Screening: Colonoscopy 2012 Colorectal Cancer Screening: Sigmoidoscopy 2012 Influenza Vaccine (#1) 2025 05/03/2020 Hepatitis B Vaccine Aged Out No longe r eligible based on patient's age to complete this topic Insurance [facility] Care Teams Physical Fitness Trainer Relationship Specialty Start Date End Date Amaya Rasmussen MD [address], [facility] [address] [place] [address] PCP - General Internal Medicine 12/25/23
[2025-03-08 10:52] VITALS: BP 136/69; PULSE 65; RESP 18; O2SAT 99; BMI 21.8
--- NOTE | 2025-03-08 11:06 | HO.ANESPROP2 ---
Documented by User: Maria Del Carmen Tyler NP 04/07/25 14:02 HPI - Anesthesia Eval Consult details Narrative: 59yo F for Left Hip Total Replacement, 04/12/25 Medically optimized per [facility] clinic No recent illness No CP/SOB with very limited activity r/t pain. Ambulating with walker CKD: Follows renal annually. Creat 0.85 with preop labs Pt declines preop oxycontin d/t previous adverse reaction. Pt reports adverse reaction/severe agitation with long term care pharmacist course of steroids for optic neuritis. Pt states OK for intraop use. PMFSH Active Problems Active Problems: All Active Problems Left hip pain (Acute) Osteoarthritis of left hip (Acute) Spondylosis of lumbar region without myelopathy or radiculopathy (Acute) Right knee pain (Acute) Osteoarthritis of right knee (Acute) Hip osteoarthritis (Acute) Past Medical History Medical History Arthritis Back pain Kidney stones History of vitamin D deficiency Paresthesias Depression Memory impairment Anxiety Former tobacco use Fibromyalgia CKD (chronic kidney disease) Borderline personality disorder Optic neuritis Sjogren's disease Scoliosis Bilateral hip dysplasia Amputation of finger Family History Family history of problems with anesthesia: No Surgical History Surgical History History of repair of ACL H/O colonoscopy S/P reconstruction of ACL of right knee using hamstring autograft History of eye surgery (~2021) History of colon resection (~2018) History of Problems with Anesthesia: No Social History Social History Are you a primary long term care pharmacist to a significant other at home: No Do you presently have visiting nurse or other home services: No Patient Tobacco Use Status: Current someday Tobacco user Second Hand Smoke Exposure: No Use of substances other than those prescribed or required for medical reasons: No Substance Use Type Other:: cbd Substance Use Frequency: Daily Have you been hit, kicked, punched, or otherwise hurt by someone within the past year? If so, by whom?: No Are you DNR?: No Advance Directives: No Advance Directives Information Provided: Yes Advance Directives on File: No Patient : No : No Poor oral hygiene: No Meds Allergies Allergy/AdvReac Type Severity Reaction Status Date / Time latex Allergy Unknown Rash Verified 04/07/25 11:42 oxycodone Allergy Shakiness Verified 04/07/25 11:42 prednisone Allergy Agitated Verified 04/07/25 11:42 Home Medications ?Medication ?Instructions ?Recorded ?Confirmed ?Last Taken ?Type acetaminophen 650 mg 650 mg PO BID 11/26/24 04/12/25 04/11/25 History tablet,extended release (Pain Relief (acetaminophen)) cholecalciferol (vitamin D3) 25 25 mcg PO DAILY 11/26/24 04/12/25 04/02/25 History mcg (1,000 unit) capsule clonazepam 0.5 mg tablet 0.25 mg PO DAILY PRN Anxiety 11/26/24 04/12/25 04/11/25 History ibuprofen 200 mg tablet 400 mg PO Q6H PRN Pain 11/26/24 04/12/25 04/02/25 History gabapentin 100 mg capsule 400 mg PO BID 01/13/25 04/12/25 04/11/25 History melatonin 5 mg tablet 5 mg PO BEDTIME PRN Insomnia 03/08/25 04/12/25 04/02/25 History multivitamin 1 tab PO DAILY 03/08/25 04/12/25 04/02/25 History Exam Height,Weight and Vital Signs: Height 5 ft 6 in Weight 61.235 kg Last Vital Signs Pulse 65 03/08/25 10:52 Resp 18 03/08/25 10:52 BP 136/69 03/08/25 10:52 Pulse Ox 99 03/08/25 10:52 O2 Del Method Room Air 03/08/25 10:52 Pertinent Lab Results Pertinent Lab Results: Narrative Narrative: EKG 01/2025 Ventricular Rate: 47 BPM Atrial Rate: 47 BPM P-R Interval: 140 ms QRS Duration: 82 ms Q-T Interval: 460 ms QTC Calculation(Bazett): 407 ms P [place]: 58 degrees R [place]: 13 degrees T [place]: 51 degrees Sinus bradycardia Poor R wave progression Abnormal ECG No previous ECGs available Confirmed by NAIMA WEIR MD ([id number]) on 02/14/2025 1:19:09 PM Airway Mallampati Class: II TM Dist: >3cm Neck ROM: Full Partial: Upper Loose/Missing/Broken Teeth: No (Crowned molar) Heart: RRR Lungs: CTAB Assessment and Plan Assessment Anesthesia Assessment: Anesthesia Plan Discussed and PAT Visit Final Anesthetic Review Family History of Problems with Anesthesia: No History of Problems with Anesthesia: No Documented by User: Sophy Lo MD 04/12/25 08:24 [facility] Past Medical History Medical History Arthritis Back pain Kidney stones History of vitamin D deficiency Paresthesias Depression Memory impairment Anxiety Former tobacco use Fibromyalgia CKD (chronic kidney disease) Borderline personality disorder Optic neuritis Sjogren's disease Scoliosis Bilateral hip dysplasia Amputation of finger Surgical History Surgical History History of repair of ACL H/O colonoscopy S/P reconstruction of ACL of right knee using hamstring autograft History of eye surgery (~2021) History of colon resection (~2018) Social History Social History Are you a primary long term care pharmacist to a significant other at home: No Do you presently have visiting nurse or other home services: No Patient Tobacco Use Status: Current someday Tobacco user Second Hand Smoke Exposure: No Use of substances other than those prescribed or required for medical reasons: No Substance Use Type Other:: cbd Substance Use Frequency: Daily Have you been hit, kicked, punched, or otherwise hurt by someone within the past year? If so, by whom?: No Are you DNR?: No Advance Directives: No Advance Directives Information Provided: Yes Advance Directives on File: No Patient : No : No Poor oral hygiene: No Meds Allergies Allergy/AdvReac Type Severity Reaction Status Date / Time latex Allergy Unknown Rash Verified 04/07/25 11:42 oxycodone Allergy Shakiness Verified 04/07/25 11:42 prednisone Allergy Agitated Verified 04/07/25 11:42 Home Medications ?Medication ?Instructions ?Recorded ?Confirmed ?Last Taken ?Type acetaminophen 650 mg 650 mg PO BID 11/26/24 04/12/25 04/11/25 History tablet,extended release (Pain Relief (acetaminophen)) cholecalciferol (vitamin D3) 25 25 mcg PO DAILY 11/26/24 04/12/25 04/02/25 History mcg (1,000 unit) capsule clonazepam 0.5 mg tablet 0.25 mg PO DAILY PRN Anxiety 11/26/24 04/12/25 04/11/25 History ibuprofen 200 mg tablet 400 mg PO Q6H PRN Pain 11/26/24 04/12/25 04/02/25 History gabapentin 100 mg capsule 400 mg PO BID 01/13/25 04/12/25 04/11/25 History melatonin 5 mg tablet 5 mg PO BEDTIME PRN Insomnia 03/08/25 04/12/25 04/02/25 History multivitamin 1 tab PO DAILY 03/08/25 04/12/25 04/02/25 History Assessment and Plan Assessment Anesthesia Assessment: Chart Reviewed Final Anesthetic Review NPO: Yes ASA Class: II Final Preanesthetic Review: No Changes in Pt Med Stat, Meds/Allgs Chart Reviewed, Consent Obtained/Reviewed and Anes Risks/Benef Reviewed Patient Risk: Low Procedure Risk: Intermediate Anesthetic Plan Anesthetic Plan: GA and Agree w/ Assess. and Plan Disposition: Standard PACU
[2025-03-08 12:37] LABS: MRSA Nasal PCR NEGATIVE (Negative); SA Nasal PCR NEGATIVE (Negative)
[2025-04-12] VITALS (20 sets, daily range): BP systolic 93–139; BP diastolic 49–91; PULSE 53–88; RESP 12–18; TEMP 36.1–36.7; O2SAT 95–100
--- NOTE | ~2025-04-12 | XR_ITS ---
EXAMINATION: XR PELVIS 1-2 VIEWS HISTORY: LT JAZMÍN COMPARISON: Comparison is made with the prior examination dated 04/07/2025. FINDINGS: A single AP view of the pelvis is submitted. The patient is status post left total hip arthroplasty. The orthopedic elements are in anatomic alignment on this single view. The right hip joint space is maintained. There are postoperative changes in the soft tissues. XR/XR pelvis 1-2V IMPRESSION: Status post left total hip arthroplasty. Electronically signed by: Carlos Childers MD 04/12/2025 10:28 AM EDT
[2025-04-12] MEDS: Lactated Ringers 1,000 ML 100 ML IVCONT ×3 (07:04→22:34)
--- NOTE | 2025-04-12 07:21 | MHC.SHP ---
Pre-Procedural Eval Section A - 24 Hr Update-Section A only Date of Service: 04/12/25 The patient is an INPATIENT: No Changes since office visit: No Cold of Flu in the past 2 weeks, No New Medical Problems, No Changes in Medication and No Patient answered all questions The patient has been examined within 24 hours of the surgical procedure. The History & Physical has been completed within 30 days and I have reviewed it.: Yes Section B - Complete if H&P > 30 days Chief Complaint: LT JAZMÍN Allergies: Allergies Allergy/AdvReac Type Severity Reaction Status Date / Time latex Allergy Unknown Rash Verified 04/07/25 11:42 oxycodone Allergy Shakiness Verified 04/07/25 11:42 prednisone Allergy Agitated Verified 04/07/25 11:42 Plan I have reviewed the history and physical and performed a pertinent physical examination on my patient. No changes have occurred unless specified. Time Spent With Patient Time: Total time managing care of this patient today ____ minutes.
--- NOTE | 2025-04-12 09:48 | PM.OP ---
Brief Operative Note Date of Service: 04/12/25 Pre-op diagnosis: Left hip OA Post-op diagnosis: same Procedure: Left JAZMÍN Implants: Phelps Trident2 50/ 10- deg linber Phelps Accolade2 #4 132/ + ceramic Surgeon: Abdoul Coto MD Was an Precision Grinder External used for this Procedure?: Yes Precision Grinder External: Brad Colmenares Estimated blood loss (mL): 200 IV fluids (mL): 1,000 Pathology: none sent Condition: stable Disposition: PACU
--- NOTE | 2025-04-12 10:46 | PHA.MEDREC ---
Addendum entered by Renee Fowler [facility] 04/12/25 15:12: Reviewed by [facility] Addendum entered by Ioana Mccullough 04/12/25 15:10: Spoke to patient and she confirmed Clonazepam 0.25 mg BID (1/2 of 0.5 mg) BID, Gabapentin 200 mg BID, Ibuprofrn 600-800 mg in the morning prn. Original Note: Pharmacy Consult ? Medication Reconciliation Pharmacy has reviewed the medication reconciliation done by nursing. claims match med list.
--- NOTE | 2025-04-12 15:21 | HO.PM.IMCN ---
History of Present Illness Data of Consult Service Date: 04/12/25 Primary Care Provider: Amaya Johnson MD [facility] Reason for consult: Medical consult 59-year-old female with a past history of arthritis presented today for an elective left total hip arthroplasty with Dr. Coto. On exam patient is awake and alert, work with therapy. No nausea or vomiting, taking sips. Her vitals are stable. Dressing clean dry and intact with no evidence of strike through drainage. Pain well-controlled with p.r.n. medication and ice. Nursing denies any concerns. On exam patient denies any medical concerns, however she reports that she has a history of undiagnosed mental illness. Patient wishes to pursue ketamine and partial hospitalization when she is recovered from her hip operation but she refuses to disclose any more details. Review of Systems Review of Systems: Denies any shortness of breath, chest pain, palpitations, dizziness, lightheadedness, headaches, dysuria, abdominal pain or discomfort, nausea, vomiting or diarrhea. [facility] Medical History Arthritis Back pain Kidney stones History of vitamin D deficiency Paresthesias Depression Memory impairment Anxiety Former tobacco use Fibromyalgia CKD (chronic kidney disease) Borderline personality disorder Optic neuritis Sjogren's disease Scoliosis Bilateral hip dysplasia Amputation of finger Surgical History History of repair of ACL H/O colonoscopy S/P reconstruction of ACL of right knee using hamstring autograft History of eye surgery (~2021) History of colon resection (~2018) Social History Household Members: None Housing: Condominium Are you a primary overnight caregiver to a significant other at home: No Do you presently have visiting nurse or other home services: No Patient Tobacco Use Status: Former Tobacco user Tobacco use type: Cigarette Cigarette Packs Per Day: 0 Cigarettes Per Day: 0 Smoked in Last 30 Days: No Second Hand Smoke Exposure: No Use of substances other than those prescribed or required for medical reasons: No Substance Use Type Other:: cbd Substance Use Frequency: Daily Have you been hit, kicked, punched, or otherwise hurt by someone within the past year? If so, by whom?: No Do you feel safe in your current relationship?: No Current Relationship Is there a partner from a previous relationship who is making you feel unsafe now?: No Are you made to feel afraid or neglected: No Are you DNR?: No Advance Directives: No Advance Directives Information Provided: Yes Advance Directives on File: No Do you have a plan to hurt others: No Plan Recently lost weight without trying: No Eating poorly because of decreased appetite: No Nutrition Risks: No Nutritional Risk Patient : No : No Poor oral hygiene: No Meds Allergies Allergy/AdvReac Type Severity Reaction Status Date / Time latex Allergy Unknown Rash Verified 04/07/25 11:42 oxycodone Allergy Shakiness Verified 04/07/25 11:42 prednisone Allergy Agitated Verified 04/07/25 11:42 Active Medications: Current Medications Acetaminophen (Acetaminophen 325 Mg Tablet) 650 mg PO Q6H PRN PRN Reason: Pain, Mild 1-3,fever,headache Last Admin: 04/12/25 12:50 Dose: 650 mg Aspirin (Aspirin 325 Mg Tablet) 325 mg PO BID [facility] Celecoxib (Celecoxib 200 Mg Capsule) 200 mg PO BID [facility] Clonazepam (Clonazepam 0.5 Mg Tablet) 0.25 mg PO DAILY PRN PRN Reason: Anxiety Docusate Sodium (Docusate Sodium 100 Mg Capsule) 100 mg PO BID [facility] Gabapentin (Gabapentin 400 Mg Capsule) 400 mg PO BID [facility] Hydromorphone HCl (Hydromorphone Hcl 0.5 Mg/0.5 Ml Syringe) 0.25 mg IVPUSH Q4H PRN; Protocol PRN Reason: Pain, Severe (Pain Scale 7-10) Last Admin: 04/12/25 14:28 Dose: 0.25 mg Hydromorphone HCl (Hydromorphone Hcl 2 Mg Tablet) 2 mg PO Q4H PRN PRN Reason: Pain, Moderate(Pain Scale 4-6) Lactated Ringer's (Lr) 1,000 mls @ 100 mls/hr IVCONT .Q10H [facility] Stop: 04/13/25 08:00 Last Admin: 04/12/25 12:46 Dose: 100 mls/hr Magnesium Hydroxide (Milk Of Magnesia 30 Ml Oral.Susp) 30 ml PO DAILY PRN PRN Reason: Constipation Melatonin (Melatonin 3 Mg Tablet) 6 mg PO BEDTIME PRN PRN Reason: Insomnia Ondansetron HCl (Ondansetron Hcl 4 Mg/2 Ml Vial) 4 mg IVPUSH Q8H PRN PRN Reason: Nausea and Vomiting Sodium Chloride (0.9 % Sodium Chloride Flush 3 Ml Syringe) 3 ml IVFLUSH QSHIFT [facility] Last Admin: 04/12/25 15:09 Dose: Not Given Home Medications ?Medication ?Instructions ?Recorded ?Confirmed ?Last Taken ?Type acetaminophen 650 mg 650 mg PO BID 11/26/24 04/12/25 04/11/25 History tablet,extended release (Pain Relief (acetaminophen)) cholecalciferol (vitamin D3) 25 25 mcg PO DAILY 11/26/24 04/12/25 04/02/25 History mcg (1,000 unit) capsule clonazepam 0.5 mg tablet 0.25 mg PO BID PRN Anxiety 11/26/24 04/12/25 04/11/25 History ibuprofen 200 mg tablet 600 - 800 mg PO DAILY PRN Pain 11/26/24 04/12/25 04/02/25 History gabapentin 100 mg capsule 200 mg PO BID 01/13/25 04/12/25 04/11/25 History melatonin 5 mg tablet 5 mg PO BEDTIME PRN Insomnia 03/08/25 04/12/25 04/02/25 History multivitamin 1 tab PO DAILY 03/08/25 04/12/25 04/02/25 History Physical Exam Vital Signs and Narrative: Vital Signs: Last Vital Signs Temp 97.4 F 04/12/25 15:07 Pulse 88 04/12/25 15:07 Resp 16 04/12/25 15:07 BP 137/61 04/12/25 15:07 Pulse Ox 97 04/12/25 15:07 O2 Del Method Room Air 04/12/25 15:07 O2 Flow Rate 6 04/12/25 10:45 BMI result Body Mass Index 21.8 CONST: Alert and oriented, in NAD. Well nourished HEENT: Normocephalic, atraumatic, MMM, Eyes clear, Neck supple RESP: Lungs clear, RRR even and regular HEART:,RRR, S1, S2. No edema GI:Abdomen Soft NT, ND. + BS times four :Deferred SKIN: Warm dry and intact, no visible lesions or rashes NEURO:CN II-XII Intact bilaterally, Sensation intact. Speech clear. +D/P flexion, + CMS PSYCH: Normal affect Results Imaging Radiologist's Impressions: Impressions Pelvis X-Ray 04/12/25 10:00 IMPRESSION: Status post left total hip arthroplasty. Electronically signed by: Carlos Childers MD 04/12/2025 10:28 AM EDT RP Assessment and Plan (1) Osteoarthritis of left hip: Status: Acute Plan 59-year-old female with no significant past medical history, status post left total hip arthroplasty today with Dr. Coto Left hip total arthroplasty Postop day 0. Treatment per Orthopedic Encourage out of bed and incentive spirometry Thank you for allowing me to participate in the care of this patient. Will sign off, reconsult if needed
--- NOTE | 2025-04-12 16:29 | HO.PM.IMCN ---
History of Present Illness Data of Consult Service Date: 04/12/25 Primary Care Provider: Amaya Johnson MD HPI 59-year-old woman admitted by Orthopedic surgeon is status post left total hip arthroplasty. Surgery was unremarkable. All previous labs are within acceptable limits. Vital signs are stable. Patient has been able to drink without any nausea or vomiting. Review of Systems Review of Systems: Denies any recent fever chills or decrease in appetite respiratory denies any shortness of breath or cough cardiovascular denied chest pain gastrointestinal denies any dysphagia abdominal pain nausea vomiting or diarrhea genitourinary denies any dysuria frequency or hematuria musculoskeletal orthopedic surgery neuropsych denies any weakness or seizures all other systems reviewed are negative [facility] Medical History Arthritis Back pain Kidney stones History of vitamin D deficiency Paresthesias Depression Memory impairment Anxiety Former tobacco use Fibromyalgia CKD (chronic kidney disease) Borderline personality disorder Optic neuritis Sjogren's disease Scoliosis Bilateral hip dysplasia Amputation of finger Surgical History History of repair of ACL H/O colonoscopy S/P reconstruction of ACL of right knee using hamstring autograft History of eye surgery (~2021) History of colon resection (~2019) Social History Household Members: None Housing: Condominium Are you a primary care transition mgr to a significant other at home: No Do you presently have visiting nurse or other home services: No Patient Tobacco Use Status: Former Tobacco user Tobacco use type: Cigarette Cigarette Packs Per Day: 0 Cigarettes Per Day: 0 Smoked in Last 30 Days: No Second Hand Smoke Exposure: No Use of substances other than those prescribed or required for medical reasons: No Substance Use Type Other:: cbd Substance Use Frequency: Daily Have you been hit, kicked, punched, or otherwise hurt by someone within the past year? If so, by whom?: No Do you feel safe in your current relationship?: No Current Relationship Is there a partner from a previous relationship who is making you feel unsafe now?: No Are you made to feel afraid or neglected: No Are you DNR?: No Advance Directives: No Advance Directives Information Provided: Yes Advance Directives on File: No Do you have a plan to hurt others: No Plan Recently lost weight without trying: No Eating poorly because of decreased appetite: No Nutrition Risks: No Nutritional Risk Patient : No : No Poor oral hygiene: No Meds Allergies Allergy/AdvReac Type Severity Reaction Status Date / Time latex Allergy Unknown Rash Verified 04/07/25 11:42 oxycodone Allergy Shakiness Verified 04/07/25 11:42 prednisone Allergy Agitated Verified 04/07/25 11:42 Active Medications: Current Medications Acetaminophen (Acetaminophen 325 Mg Tablet) 650 mg PO Q6H PRN PRN Reason: Pain, Mild 1-3,fever,headache Last Admin: 04/12/25 12:50 Dose: 650 mg Aspirin (Aspirin 325 Mg Tablet) 325 mg PO BID [facility] Celecoxib (Celecoxib 200 Mg Capsule) 200 mg PO BID [facility] Clonazepam (Clonazepam 0.5 Mg Tablet) 0.25 mg PO DAILY PRN PRN Reason: Anxiety Docusate Sodium (Docusate Sodium 100 Mg Capsule) 100 mg PO BID [facility] Gabapentin (Gabapentin 400 Mg Capsule) 400 mg PO BID [facility] Hydromorphone HCl (Hydromorphone Hcl 0.5 Mg/0.5 Ml Syringe) 0.25 mg IVPUSH Q4H PRN; Protocol PRN Reason: Pain, Severe (Pain Scale 7-10) Last Admin: 04/12/25 14:28 Dose: 0.25 mg Hydromorphone HCl (Hydromorphone Hcl 2 Mg Tablet) 2 mg PO Q4H PRN PRN Reason: Pain, Moderate(Pain Scale 4-6) Lactated Ringer's (Lr) 1,000 mls @ 100 mls/hr IVCONT .Q10H [facility] Stop: 04/13/25 08:00 Last Admin: 04/12/25 12:46 Dose: 100 mls/hr Magnesium Hydroxide (Milk Of Magnesia 30 Ml Oral.Susp) 30 ml PO DAILY PRN PRN Reason: Constipation Melatonin (Melatonin 3 Mg Tablet) 6 mg PO BEDTIME PRN PRN Reason: Insomnia Ondansetron HCl (Ondansetron Hcl 4 Mg/2 Ml Vial) 4 mg IVPUSH Q8H PRN PRN Reason: Nausea and Vomiting Sodium Chloride (0.9 % Sodium Chloride Flush 3 Ml Syringe) 3 ml IVFLUSH QSHIFT [facility] Last Admin: 04/12/25 15:09 Dose: Not Given Home Medications ?Medication ?Instructions ?Recorded ?Confirmed ?Last Taken ?Type acetaminophen 650 mg 650 mg PO BID 11/26/24 04/12/25 04/11/25 History tablet,extended release (Pain Relief (acetaminophen)) cholecalciferol (vitamin D3) 25 25 mcg PO DAILY 11/26/24 04/12/25 04/02/25 History mcg (1,000 unit) capsule clonazepam 0.5 mg tablet 0.25 mg PO BID PRN Anxiety 11/26/24 04/12/25 04/11/25 History ibuprofen 200 mg tablet 600 - 800 mg PO DAILY PRN Pain 11/26/24 04/12/25 04/02/25 History gabapentin 100 mg capsule 200 mg PO BID 01/13/25 04/12/25 04/11/25 History melatonin 5 mg tablet 5 mg PO BEDTIME PRN Insomnia 03/08/25 04/12/25 04/02/25 History multivitamin 1 tab PO DAILY 03/08/25 04/12/25 04/02/25 History Physical Exam Vital Signs and Narrative: Vital Signs: Last Vital Signs Temp 98.1 F 04/12/25 15:45 Pulse 53 04/12/25 15:45 Resp 14 04/12/25 15:45 BP 113/58 L 04/12/25 15:45 Pulse Ox 99 04/12/25 15:45 O2 Del Method Room Air 04/12/25 15:45 O2 Flow Rate 6 04/12/25 10:45 BMI result Body Mass Index 21.8 Appearing in no acute distress head is normocephalic atraumatic eyes pupils are PERRLA sclera is anicteric mouth throat mucous membranes are intact and moist neck is supple no lymphadenopathy, no JVD noted lung sounds are clear to auscultation heart regular rate rhythm, clear S1, S2 positive bowel sounds, abdomen is soft, nontender neuro patient is alert x3, no focal deficits Results Imaging Radiologist's Impressions: Impressions Pelvis X-Ray 04/12/25 10:00 IMPRESSION: Status post left total hip arthroplasty. Electronically signed by: Carlos Childers MD 04/12/2025 10:28 AM EDT Assessment and Plan (1) Hip osteoarthritis: Status: Acute Plan 59-year-old woman admitted by Orthopedic surgery and is status post left total hip arthroplasty Left total hip arthroplasty Management as per surgical team Pain management Anxiety Continue Klonopin No other significant medical problems DVT prophylaxis with full-dose aspirin Full code Medical consultation complete. Will sign off
[2025-04-12] MEDS: 0.9 % Sodium Chloride Flush 3 ML SYRINGE IVFLUSH (20:05)
--- NOTE | 2025-04-12 20:05 | PM.DS ---
DS: Providers Provider Date of Service: 04/12/25 Date of discharge: 04/13/25 Primary care physician: Amaya Johnson MD Consults: 04/12/25 11:54 Consult to Case Management Routine Comment: lt serina home vs rehab Consult to Hospitalist Routine Comment: Consulting Provider[place] [facility] Reason For Exam: medical management DS: Diagnosis Discharge Diagnosis (1) History of total left hip replacement: Status: Acute DS: Summary Hospital Course Hospital Course: cThe patient underwent a successful left total hip arthroplasty on 04/12/[address] Coto, was transferred to PACU and then to the floor to recover. During their stay, their vitals were stable, afebrile at 99.4 . Labs were unremarkable, H/H 10.1/31.0. POD 1 she was started on ASA 325mg tabs po twice a day for DVT ppx, they also received Physical Therapy services twice a day. Physical therapy should include gait training, core and lumbar strength, glute strength. Posterior precautions intact. WBAT. Prior to discharge, her dressing was clean dry and intact. The Aquacel dressing should remain intact and dry at all times. Any concerns with the dressing, please contact orthopedic office. No showering. The plan is to be discharged home with vna Time Attestation Discharge Coordination Time (in mins): 30 Quality: Safe Use of Opioids Does Pt have an Active Cancer Diagnosis on the Problem List?: No Quality: Stroke Does the patient have a stroke diagnosis?: No Physical Exam Vital Signs: Vital Signs: Last Vital Signs Temp 97.0 F 04/12/25 19:12 Pulse 56 04/12/25 19:12 Resp 18 04/12/25 19:12 BP 128/68 04/12/25 19:12 Pulse Ox 95 04/12/25 19:12 O2 Del Method Room Air 04/12/25 19:12 O2 Flow Rate 6 04/12/25 10:45 BMI result Body Mass Index 21.8 DS: Data Data Completed and Pending Pending studies at discharge: Pending at discharge 04/12/25 08:21 Surgical [PTH] Routine Discharge Plan Discharge Patient Disposition: Home Health Service Referrals: Brad Colmenares PA-C [Physician Dipper Machine Operator, Orthopedics] - 1 Week Referral Note: 04/28/25 10:15 [facility] Brad Colmenares PA-C Discharge Medications: New celecoxib 200 mg Capsule 200 mg PO BID 30 Days Qty: 60 0RF acetaminophen 325 mg Tablet 650 mg PO Q6H PRN (Reason: Pain, Mild 1-3,Fever,Headache) 30 Days Qty: 240 0RF aspirin 325 mg Tablet 325 mg PO BID 42 Days Qty: 84 0RF hydromorphone 2 mg Tablet 2 mg PO Q4H PRN (Reason: Pain, Moderate(Pain Scale 4-6)) 7 Days Qty: 42 0RF Rx Instructions: Partial Fill upon patient request. docusate sodium 100 mg Capsule 100 mg PO BID 7 Days Qty: 14 0RF Continued (DME) Folding Front Wheeled walker See Rx Instructions .ROUTE .MEDSUPPLY Qty: 1 0RF Rx Instructions: Duration: 99 days (DME) Raised toilet seat See Rx Instructions .ROUTE .MEDSUPPLY Qty: 1 0RF Rx Instructions: duration - 99 days (DME) SHOWER CHAIR See Rx Instructions .ROUTE .MEDSUPPLY Qty: 1 0RF Rx Instructions: DURATION: LIFETIME multivitamin Tablet 1 tab PO DAILY melatonin 5 mg Tablet 5 mg PO BEDTIME PRN (Reason: Insomnia) cholecalciferol (vitamin D3) 25 mcg (1,000 unit) capsule 25 mcg PO DAILY clonazepam 0.5 mg tablet 0.25 mg PO BID PRN (Reason: Anxiety) gabapentin 100 mg capsule 200 mg PO BID Discontinued acetaminophen [Pain Relief (acetaminophen)] 650 mg tablet extended release 650 mg PO BID ibuprofen 200 mg tablet 600 - 800 mg PO DAILY PRN (Reason: Pain) Discharge Orders: Discharge Order (Routine); Ordered 04/13/25 Ordered By: Brad Colmenares Diet: Regular diet Activity on Discharge: Use cane or walker Activity Restrictions/Additional Instructions: Physical Therapy : Hip replacement- WBAT with walker, posterior precautions, gait training Use walker for ambulation Limit stair climbing No shower or tub bath No driving for 6 weeks Continue anticoagulant Keep Aquacel dressing clean, dry and intact. Follow up with orthopedics in 2 weeks -Bandage/Incision Site Care: -Ice 20mins at a time -Make sure you use a towel or cloth on your skin as a barrier -DO NOT remove the bandage -Keep Bandage clean, dry and intact -Do not get the bandage wet: -No tub bath, pools or hot tubs -If there are any concerns regarding the bandage please call orthopedics: [phone] -Hip Precautions: -Refrain from laying on side -No crossing the legs -Avoid low chairs and deep couches -Use supportive shoes with nonslip soles -Physical Therapy: -Patient is WBAT with the use of a walker -Strengthening: Quadriceps and hip muscles -Walking: Gait training and gradually increasing distance with walker -Ankle pumps and incentive spirometry to limit the risk of blood clot -Diet: -Resume regular diet as tolerated. -Drink plenty of fluids and eat a high-fiber foods to avoid constipation -This is a common side effect of pain medication) -Take stool softeners as prescribed -Blood Clot Prevention: -Take the prescribed blood thinner (Aspirin) as directed for 6 weeks -Perform ankle pumps and walk frequently with the walker and assistance if needed -Report calf pain, swelling, or shortness of breath immediately Print Language: Liberian
--- NOTE | 2025-04-12 20:06 | W.MHC.F2F ---
Service Date Service Date: 04/12/25 Encounter Date of encounter: 04/12/25 Reasons for Services Signs and symptoms assessed: Weakness, poor balance, poor gait mechanics Reason for physical therapy: home safety and mobility, therapeutic exercises, restore joint function, gait/transfer training, ADL training and energy conservation Reason for occupational therapy: home safety and mobility, therapeutic exercises, restore joint function, gait/transfer training, ADL training and energy conservation Overseeing Care: Abdoul Coto Homebound: Leaving the home is medically contraindicated at this time without the asist of a device and/or another person due th the listed conditions above and below. Reason homebound: unsteady gait / fall risk, pain with ambulation, poor balance / fall risk and unable to drive Homebound supporting statement: Pt. is considered home bound due to recent surgery. Unable to drive, poor balance, poor gait mechanics. Certification: Based on the above findings, I certify that this patient is confined to the home and needs intermittent residential care, physical therapy and/or speech therapy, or continues to need occupational therapy. The patient is under my care, and I have initiated the establishment of the plan of care. The patient will be followed by a physician who will periodically review the plan of care. Time Spent With Patient Time: Total time managing care of this patient today ____ minutes.
[2025-04-13 03:36] VITALS: BP 112/55; PULSE 91; RESP 17; TEMP 37.1; O2SAT 98
[2025-04-13 06:08] LABS: MANUAL DIFF FLAG NO
[2025-04-13 06:19] LABS: Hematocrit 31.0 % (37.0-47.0); Hemoglobin 10.1 g/dl (12.0-16.0); Imm Gran Abs Auto 0.03 X10*3/uL (0.00-0.03); Imm Gran Pct Auto 0.4 % (0.0-0.4); Lymphocytes Absolute Auto 1.9 X10*3/uL (1.2-4.9); Mean Corpuscular HGB Conc 32.6 g/dl (31.0-35.0); Mean Corpuscular Hemoglobin 30.8 pg (27.0-33.0); Mean Corpuscular Volume 94.5 fL (80.0-98.0); NRBC Abs Auto 0.000 X10*3/uL (0.0-0.012); NRBC Pct Auto 0.0 /100WBC (0.0-0.2); Platelet Count 207 X10*3/uL (160-400); Red Blood Count 3.28 X10*6/uL (4.20-5.50); White Blood Count 8.4 X10*3/uL (4.8-10.8)
[2025-04-13 06:24] LABS: Anion Gap 13 (12-20); Blood Urea Nitrogen 10 mg/dL (9-16); Calcium 8.6 mg/dL (8.4-10.2); Carbon Dioxide 25 mmol/L (22-29); Chloride 106 mmol/L (96-108); Creatinine Clr Calc Pharmacy 71.8; Estimated Glomerular Filt Rate > 60; Potassium 3.7 mmol/L (3.3-5.1); Sodium 140 mmol/L (135-145)
[2025-04-13 07:12] VITALS: BP 112/59; PULSE 93; RESP 14; TEMP 37.4; O2SAT 96
--- NOTE | 2025-04-13 07:55 | P.PNOP_ITS ---
Subjective Subjective Date of Service: 04/13/25 Interval history: POD 1 s/p LT JAZMÍN no overnight events patient has been out of bed numerous times, no concerns pain is well managed Physical Exam Vital Signs: Vital Signs: Last Vital Signs Temp 99.4 F 04/13/25 07:12 Pulse 93 04/13/25 07:12 Resp 14 04/13/25 07:12 BP 112/59 L 04/13/25 07:12 Pulse Ox 96 04/13/25 07:12 O2 Del Method Room Air 04/13/25 07:12 O2 Flow Rate 6 04/12/25 10:45 BMI result Body Mass Index 21.8 Const: General: cooperative, healthy appearing and no acute distress Resp: Effort & Inspection: normal respiratory effort and able to speak in complete sentences Cardio: Rate: regular rate Peripheral pulses: Peripheral pulses 2+ throughout GI: Palpation (GI): Soft to palpation Skin: General skin exam: no rashes or lesions noted Extrem: Other: left hip bandage clean, dry and intact she is able to initiate SLR calf supple non tender she is able to plantar and dorsi flex NVI Procedures Date of Service Date of Service: 04/13/25 Progress Note: A&P Assessment and plan (1) History of total left hip replacement: Status: Acute Plan * Continue pain mgmnt * Begin Aspirin for dvt ppx * begin PT for LT JAZMÍN * Dispo planning-PT clearance Time Spent With Patient Time: Total time managing care of this patient today ____ minutes. Quality Stroke Does the patient have a stroke diagnosis?: No VTE Prior VTE?: No VTE Risk Level:: Surgical - very high VTE Device Contraindication: N/A - Device Ordered VTE Drug Contraindication: N/A - Med Ordered
--- NOTE | 2025-04-13 08:28 | P.OP_ITS ---
Operative Note Operative Note Date of Service: 04/12/25 Narrative: Date of Service: 04/12/25 Pre-op diagnosis: Left hip OA Post-op diagnosis: same Procedure: Left JAZMÍN Implants: [place] Trident2 50/ 10- deg linber Simran Accolade2 #4 132/ + ceramic Surgeon: Abdoul Coto MD Was an Event Planning Intern used for this Procedure?: Yes Event Planning Intern: Brad Colmenares Estimated blood loss (mL): 200 IV fluids (mL): 1,000 Pathology: none sent Condition: stable Disposition: PACU Procedure in detail: Patient was brought into the operating room and placed in the right lateral decubitus position. All bony prominences were well padded and the limb was prepped and draped in standard sterile fashion. A time-out was called to identify proper site procedure proper surgeon IV antibiotics and 1 g of tranaxemic acid were administered. I began by making a curvilinear incision over the posterolateral aspect of the greater trochanter. Dissection was taken down to the tensor fascia which was incised in line with the incision and a Charnley retractor was placed. Cautery was used to maintain hemostasis. The hip was internally rotated and the external rotators were identified. The vessels were cauterized and a full-thickness capsular/external rotator layer was developed starting just distal to the piriformis. This layer was tagged and a dull Hohmann retractor was placed underneath the neck in the hip was dislocated. A neck cut was made 1 cm proximal to the lesser trochanter and the head and neck were removed and measured 46 mm on the back table. The head was deformed and eburnated. I then removed the labrum and cauterized the fovea. I started with a 44 reamer and medialized to the inner table. Her cup was shallow, vertical and retroverted. I sequentially reamed up to a size 50 and impacted a 50mm cup at 40 degrees of inclination and 25 degrees of version. I then placed a 10 deg post erior lipped liner and turned my attention to the femur. I identified the piriformis insertion and used this as a landmark for my bertrand cutter. The medius tendon was protected with a Hibs retractor. A Charnley awl was inserted in the canal and a curved curette used to remove the lateral bone. I irrigated copiously. I then sequentially broached in the patient's natural version to a size 4 and placed my trial implants. I used a #4/132/+4 based on my pre-operative template. I removed all instrumentation and copiously irrigated. I placed my final femoral implant and again took the hip through range of motion and was satisfied with the stability and length. She has an excdess of pre operative mostion and was most stable using a +4 implant. The final +4 implant was impacted in place and the hip reduced. I then irrigated copiously and placed 1 g of local tranexamic acid. 14 ml Zynrelef was injected in the joint, under the IT band and under the skin while I closed each layer. I performed a capsular closure with 2.0 fiberwire, Nora's fascia with 0 Vicryl, subcuticular 3.0 V-lock on the skin with skin aglue and steri-strips. Patient was placed into a sterile dressing. Patient was extubated brought to the recovery room in stable condition. There were no known complications.
--- NOTE | 2025-04-13 09:09 | MHC.CM.PN ---
pt lives alone is independent has no services prior to admission pt will habe comfort plus vna when dcd dcplam brandon,e with vna pt has own trasport
--- NOTE | 2025-04-13 09:15 | HO.POSTANES ---
Post Anesthesia Evaluation Post Anesthesia Evaluation Date of Service: 04/13/25 Vital Signs: Vital Signs Temp Pulse Resp BP Pulse Ox O2 Del Method 04/13/25 07:12 99.4 F 93 14 112/59 L 96 Room Air 04/13/25 03:36 98.8 F 91 17 112/55 L 98 Room Air Anesthesia: General Mental Status: Awake Pain Control: Satisfactory Nausea/Vomiting: None Hydration: Adequate Anesthesia-Related Issues: No Anes. Related Issues
== END 2025-04-13 12:50 | disposition home health service (06) ==
LOC: HO.SSS 07:04 → HO.S3 11:37
PROVIDERS: Physician Assistant; PCP Internal Medicine; Visit Provider Orthopaedic Surgery
PROC: (CPT 27130; principal; 2025-04-12 07:30)
DX: M16.12 Unilateral primary osteoarthritis, left hip (principal); Q65.89 Other specified congenital deformities of hip; M35.00 Sjogren syndrome, unspecified; N18.31 Chronic kidney disease, stage 3a; N20.0 Calculus of kidney; M79.7 Fibromyalgia; M41.9 Scoliosis, unspecified; F33.0 Major depressive disorder, recurrent, mild; F41.1 Generalized anxiety disorder; F60.3 Borderline personality disorder; R41.3 Other amnesia; R20.2 Paresthesia of skin; H46.9 Unspecified optic neuritis; Z79.1 Long term (current) use of non-steroidal anti-inflammatories (NSAID); Z79.899 Other long term (current) drug therapy; Z91.040 Latex allergy status; Z88.5 Allergy status to narcotic agent; Z88.8 Allergy status to other drugs, medicaments and biological substances; Z90.49 Acquired absence of other specified parts of digestive tract; Z98.890 Other specified postprocedural states; Z87.891 Personal history of nicotine dependence
CPT/HCPCS: 27130; 36415; 72170; 80048; 85025; 86850; 86900; 86901; 87640; 87641; 88304; 88311; 97162; 97165; 97530; C1713; C1776; J0131; J0668; J0690; J1100; J1171; J2003; J2371; J2405; J2704; J3010; J7120

== ENCOUNTER → 2025-04-12 06:13 | Outpatient (BNV) | payer OTHER, SELFPAY | PROVIDERS: PCP Internal Medicine; Visit Provider Orthopaedic Surgery | DX: M16.12 Unilateral primary osteoarthritis, left hip (principal) | CPT/HCPCS: 27130; 99024; G0180 ==

== ENCOUNTER → 2025-04-12 06:13 | Outpatient (BNV) | payer OTHER, SELFPAY | PROVIDERS: PCP Internal Medicine; Visit Provider Nurse Practitioner Family | DX: M16.9 Osteoarthritis of hip, unspecified (principal); M16.12 Unilateral primary osteoarthritis, left hip | CPT/HCPCS: 99221; 99499 ==

== ENCOUNTER → 2025-04-12 09:54 | Outpatient (BNV) | payer OTHER, SELFPAY | PROVIDERS: PCP Internal Medicine; Visit Provider Radiology Diagnostic Radiology | DX: Z96.642 Presence of left artificial hip joint (principal) | CPT/HCPCS: 72170 ==

== ENCOUNTER 2025-04-28 09:47 | Outpatient (AMB) | payer OTHER, SELFPAY ==
--- NOTE | 2025-04-28 09:55 | A.OFFVIS_ITS ---
Intake Visit Reasons: 2WKPO: Anita JAZMÍN w/NE 04/12/25 Intake Note: Mildred is a 59 year old female who presents today post operatively after undergoing a left total hip arthorplasty, performed by Dr. Coto on 04/12/25. Patient reports her current pain level is a 3 out of 10. States having a few episodes of her hip feeling like it is sliding and when this occurs she will have an increase of pain. Allergies latex Allergy (Unknown, Verified 04/28/25 10:06) Rash oxycodone Allergy (Verified 04/28/25 10:06) Shakiness prednisone Allergy (Verified 04/28/25 10:06) Agitated Medication List - Last Reconciled 04/28/25 by Brad Colmenares PA-C acetaminophen 650 mg (2 x 325 mg) PO Q6H PRN 30 days aspirin 325 mg PO BID 42 days celecoxib 200 mg PO BID 30 days cholecalciferol (vitamin D3) 25 mcg PO DAILY clonazepam 0.25 mg PO BID PRN docusate sodium 100 mg PO BID 7 days [Folding Front Wheeled walker Duration: 99 days] gabapentin 200 mg PO BID hydromorphone 2 mg PO Q4H PRN 7 days melatonin 5 mg PO BEDTIME PRN multivitamin 1 tab PO DAILY [Raised toilet seat duration - 99 days] [SHOWER CHAIR DURATION: LIFETIME] HPI HPI 2WKPO: Anita JAZMÍN w/NE 04/12/25: Details: 59-year-old female returns to the office today status post left total hip arthroplasty with Dr. Coto on 04/12/2025. She is doing quite well and walking with a walker. She is receiving home physical therapy and progressing well. [facility] Medical History Arthritis Back pain Kidney stones History of vitamin D deficiency Paresthesias Depression Memory impairment Anxiety Former tobacco use Fibromyalgia CKD (chronic kidney disease) Borderline personality disorder Optic neuritis Sjogren's disease Scoliosis Bilateral hip dysplasia Amputation of finger Surgical History History of repair of ACL H/O colonoscopy S/P reconstruction of ACL of right knee using hamstring autograft History of eye surgery (~2021) History of colon resection (~2018) Social History Household Members: None Housing: Condominium Are you a primary hospice home care coordinator to a significant other at home: No Do you presently have visiting nurse or other home services: No Patient Tobacco Use Status: Former Tobacco user Tobacco use type: Cigarette Cigarette Packs Per Day: 0 Cigarettes Per Day: 0 Second Hand Smoke Exposure: No service: No Review of Systems Const All systems reviewed & are unremarkable except as noted in HPI and below Physical Exam Extrem Other: Left hip incision is clean dry and intact. No surrounding erythema or ecchymosis. She can perform hip flexion and range of motion without severe discomfort. Calf is supple and nontender neurovascularly intact. Assessment & Plan Assessment & Plan (1) History of total left hip replacement: Code(s): Z96.642 - Presence of left artificial hip joint Category: Surgical Plan: Patient has dissolvable sutures with Steri-Strips which will remain intact until they fall off on their own. The patient will continue working with physical therapy to improve strength and gait training. She has another two weeks for Home PT and then she will transition to [facility]. An order was provided and she was given their information to make an appt. I reminded the patient no dental work until 3 months post op and he will require antibiotics for dental prophylaxis. Patient was reminded no driving until 6 weeks postop. They will return in 4 weeks for routine follow up, sooner if needed. Orders: Orders PT Evaluation and Treatment Today Z96.642 - Presence of left artificial hip joint Coding Level of Care Code Global (20583) Diagnoses History of total left hip replacement Z96.642
== END 2025-04-28 10:47 | disposition home or self-care (01) ==
LOC: HO.HOS 09:48
PROVIDERS: PCP Internal Medicine; Visit Provider Physician Assistant
DX: Z96.642 Presence of left artificial hip joint (principal)
CPT/HCPCS: 99024

== ENCOUNTER → 2025-04-28 09:47 | Outpatient (BNVA) | payer OTHER, SELFPAY | PROVIDERS: PCP Internal Medicine; Visit Provider Physician Assistant | DX: Z47.1 Aftercare following joint replacement surgery (principal); Z96.642 Presence of left artificial hip joint | CPT/HCPCS: 99212 ==

== ENCOUNTER 2025-05-25 09:20 | Outpatient (AMB) | payer OTHER, SELFPAY ==
--- NOTE | 2025-05-25 09:21 | A.OFFVIS_ITS ---
Vital Signs 05/25/25 09:32 Height 5 ft 6.5 in Weight 128 lb BMI 20.3 Intake Visit Reasons: 6WKPO: L JAZMÍN w/NE 04/12/25 Intake Note: Mildred is a 59 year old female who presents today for a post operative visit after undergoing a left JAZMÍN, performed by Dr. Coto on 04/12/25. At last visit patient was instructed to continue with at home therapy and to transition into outpatient therapy. Follow up in 4 weeks. Today patient reports her pain fluctuates, states residual pain in her groin area that comes and goes. States soreness with physical therapy, as her work outs are increasing. She describes her discomfort as a mild throbbing. Patient is requesting an x-ray due to a recent fall about 4 weeks ago. Allergies latex Allergy (Unknown, Verified 05/25/25 09:22) Rash oxycodone Allergy (Verified 05/25/25 09:22) Shakiness prednisone Allergy (Verified 05/25/25 09:22) Agitated Medication List - Last Reconciled 05/25/25 by Brad Colmenares PA-C acetaminophen 650 mg (2 x 325 mg) PO Q6H PRN 30 days aspirin 325 mg PO BID 42 days celecoxib 200 mg PO BID 30 days cholecalciferol (vitamin D3) 25 mcg PO DAILY [Folding Front Wheeled walker Duration: 99 days] gabapentin 400 mg PO BID melatonin 5 mg PO BEDTIME PRN multivitamin 1 tab PO DAILY [Raised toilet seat duration - 99 days] [SHOWER CHAIR DURATION: LIFETIME] HPI HPI 6WKPO: L JAZMÍN w/NE 04/12/25: Details: 59-year-old female returns to the office today 6 weeks status post left total hip arthroplasty with Dr. Coto on 04/12/2025. She is ambulating with a cane and continues to work with physical therapy. She has some discomfort along the inner aspect of the thigh but it is not severe and it is not limiting her ability to perform daily activities. [facility] Medical History Arthritis Back pain Kidney stones History of vitamin D deficiency Paresthesias Depression Memory impairment Anxiety Former tobacco use Fibromyalgia CKD (chronic kidney disease) Borderline personality disorder Optic neuritis Sjogren's disease Scoliosis Bilateral hip dysplasia Amputation of finger Surgical History History of repair of ACL H/O colonoscopy S/P reconstruction of ACL of right knee using hamstring autograft History of eye surgery (~2021) History of colon resection (~2018) Social History Household Members: None Housing: Condominium Are you a primary customer care consultant to a significant other at home: No Do you presently have visiting nurse or other home services: No Patient Tobacco Use Status: Former Tobacco user Tobacco use type: Cigarette Cigarette Packs Per Day: 0 Cigarettes Per Day: 0 Second Hand Smoke Exposure: No service: No Review of Systems Const All systems reviewed & are unremarkable except as noted in HPI and below Physical Exam Vital Signs: BMI result Body Mass Index 20.3 Extrem Other: Left hip incision is well healed. No surrounding erythema or ecchymosis. She can perform hip flexion and range of motion without severe discomfort. Calf is supple and nontender neurovascularly intact. Results Reviewed Results Reviewed: X-rays of the left hip obtained in the office today and reviewed by me show intact hip prosthesis without signs of loosening or fracture Assessment & Plan Assessment & Plan (1) History of total left hip replacement: Code(s): Z96.642 - Presence of left artificial hip joint Category: Surgical Plan: She will continue with activities as tolerated. She can begin driving. I did refill her Celebrex but explained technician terminal and repeater use over 3 months she should get from her primary as they will need to monitor her kidney function. She will continue with physical therapy. She will return in [address] Coto, sooner if needed. Orders: Orders XR hip LT min 2V Today M25.552 - Pain in left hip Coding Level of Care Code Global (05263) Diagnoses History of total left hip replacement Z96.642
[2025-05-25 09:32] VITALS: BMI 20.3
--- OUTSIDE RECORDS SUMMARY | 2025-05-25 10:18 | XMS_ITS | Encounter Summary ---
Author Organization [facility] Address [address] [place] [address] Phone Care Team Providers Care Sales Representative [employer] Name Role Phone Amaya Rasmussen MD Primary Care Provider [phone] Encounter Details Date Type Department Care Team (Late Contact Info) Description 01/16/2023 Documentation Only [facility] [address] [place] [phone] [place], [place] [address] [place] [address] Social History Tobacco Use Types [...] Encounters Date Type Department Care Team (Late Contact Info) Description 03/29/2026 1:30 PM EDT Office Visit [facility] [address] [place] [address] Yunior Theodore [address] [place] [address] documented as of this encounter Visit Diagnoses Not on filedocumented in this encounter Care Teams Sales Representative [employer] Relationship Specialty Start Date End Date Amaya Rasmussen MD [address], [facility] [address] [place] [address] PCP - General Internal Medicine 12/25/23 documented as of this encounter
--- OUTSIDE RECORDS SUMMARY | 2025-05-25 10:18 | XMS_ITS | Encounter Summary ---
Author Organization [facility] Address [address] [place] [address] Phone Care Team Providers Care Director Custom Name Role Phone Amaya Rasmussen MD Primary Care Provider Encounter Details Date Type Department Care Team (Late Contact Info) Description 02/20/2023 Documentation Only [facility] [address] [place] [phone] Yunior Theodore DO [address] [facility] [address] [place] [address] Social History Tobacco Use Types Packs/Day Years [...] Upcoming Encounters Date Type Department Care Team ([facility] Contact Info) Description 03/29/2026 1:30 PM EDT Office Visit [facility] [address] [place] [phone] Yunior Theodore DO [address] [facility] [place] [address] documented as of this encounter Visit Diagnoses Not on filedocumented in this encounter Care Teams Director Custom Relationship Specialty Start Date End Date Amaya Rasmussen MD [address] , [facility] 2 [place] [address] PCP - General Internal Medicine 12/25/23 documented as of this encounter
--- OUTSIDE RECORDS SUMMARY | 2025-05-25 10:18 | XMS_ITS | Encounter Summary ---
Author Organization [facility] Address [address] [place] [address] Phone Care Team Providers Care Shaft Sinker Name Role Phone Amaya Rasmussen MD Primary Care Provider [phone] Encounter Details Date Type Department Care Team (Late Contact Info) Description 01/16/2023 Documentation Only [facility] [address] [place] [phone] [place], [place] [address] [place] [address] Social History Tobacco Use Types [...] Visit [facility] [address] [place] [address] Yunior Theodore [address] [place] [address] documented as of this encounter Visit Diagnoses Not on filedocumented in this encounter Care Teams Shaft Sinker Relationship Specialty Start Date End Date Amaya Rasmussen MD [address], [facility] [address] [place] [address] PCP - General Internal Medicine 12/25/23 documented as of this encounter
--- OUTSIDE RECORDS SUMMARY | 2025-05-25 10:18 | XMS_ITS | Encounter Summary ---
Author Organization [facility] [place], Address [address] [place] [address] Phone Care Team Providers Care Golf Coach Name Role Phone Amaya Rasmussen MD Primary Care Provider [phone] Encounter Details Date Type Department Care Team (Late Contact Info) Description 02/26/2023 Documentation Only [facility] [address] [place] [phone] Yunior Theodore DO [address] [address] [place] [address] Social History Tobacco Use Types [...] Upcoming Encounters Date Type Department Care Team ([facility] Contact Info) Description 03/29/2026 1:30 PM EDT Office Visit [facility] [address] [place] [phone] Yunior Theodore DO [address] [facility] [address] [place] [address] documented as of this encounter Visit Diagnoses Not on filedocumented in this encounter Care Teams Golf Coach Relationship Specialty Start Date End Date Amaya Rasmussen MD [address] , [facility] 2 [place] [address] PCP - General Internal Medicine 12/25/23 documented as of this encounter
--- OUTSIDE RECORDS SUMMARY | 2025-05-25 10:18 | XMS_ITS | Clinical Summary ---
Author Organization [facility] Address [address] [place] [address] Phone Care Team Providers Care Pipe And Test Supervisor Name Role Phone Amaya Rasmussen MD Primary Care Provider [phone] Allergies Active Allergy Reactions Criticality Noted Date Comments Cat Dander 07/18/2020 Latex 07/18/2020 Medications No known medications Active Problems Problem Noted Date Diagnosed Date Renal insufficiency 07/18/2020 Stage 3a chronic kidney disease 07/18/2020 Hyperkalemia 07/18/2020 Fibromyalgia Resolved Problems Problem Noted Date Diagnosed Date Resolved Date Vitamin D deficiency 07/18/2020 022 Encounters Date Type Department Care Team Description 03/23/2025 3:00 PM EDT Office Visit [facility], [address] [place] [address] Ynuior Theodore DO Stage 3a chronic kidney disease (HCC) (Primary Dx); Hyperkalemia from Last 3 Months Immunizations Immunization Administration Dates Next Due Influenza, [...] Care Team (Late st Contact Info) Description 03/29/2026 1:30 PM EDT Office Visit [facility] [place], [address] [place] [phone] Yunior Theodore DO [address] [place] [address] Health Maintenance Due Date Last Done Comments Breast Cancer Screening 1965 Pneumococcal Vaccine: 50+ Ye ars (1 of 2 - PCV) 1982 Colorectal Cancer Screening: Annual FOBT 2012 Colorectal Cancer Screening: Colonoscopy 2012 Colorectal Cancer Screening: Sigmoidoscopy 2012 Influenza Vaccine (#1) 2025 05/03/2020 Hepatitis B Vaccine Aged Out No longe r eligible based on patient's age to complete this topic Insurance [facility] Medicaid Care Teams Pipe And Test Supervisor Relationship Specialty Start Date End Date Amaya Rasmussen MD [address] [facility] [address] [place] [address] PCP - General Internal Medicine 12/25/23
== END 2025-05-25 10:11 | disposition home or self-care (01) ==
LOC: HO.HOS 09:21
PROVIDERS: PCP Internal Medicine; Visit Provider Physician Assistant
DX: Z96.642 Presence of left artificial hip joint (principal)
CPT/HCPCS: 99024

== ENCOUNTER 2025-05-25 09:20 | Outpatient (REF) | payer OTHER, SELFPAY ==
--- OUTSIDE RECORDS SUMMARY | 2025-05-22 23:59 | XMS_ITS | Continuity of Care Document ---
Author Organization [facility] Address [address] [place] [address]- Care Team Providers Care Caddy Packer Name Role Phone Alex JOLLEY, Amaya Trujillo Primary Care Physician Encounter [facility] Date(s): 04/22/25 - 05/22/25 [facility] [address] [place], [place] [address] Encounter Type: Triage Allergies, Adverse Reactions, Alerts Substance Criticality Severity Reaction Reaction Severity Status Cats Dog dander Active Latex rash wearing the gloves Active Immunizations Given and Recorded Vaccine Date Status Refusal Reason SARS-CoV-2(COVID-19)mRNA-LNP vac([id number]) 06/18/23 Recorded influenza virus vaccine, inactivated 04/03/22 Luis rded influenza virus vaccine, inactivated 04/24/21 Luis rded influenza virus vaccine, inactivated 04/11/20 Luis rded influenza virus vaccine, inactivated 04/04/19 Luis rded [id number] bivalent booster vax 04/03/22 Recorded tetanus/diphtheria/pertussis, acel(Tdap) 1 03/21/22 Given tetanus/diphtheria/pertussis, acel(Tdap) 07/26/10 Given SARS-CoV-2 (COVID-19) mRNA-1273 vaccine 12/27/21 R ecorded SARS-CoV-2 (COVID-19) mRNA-1273 vaccine 05/12/21 R ecorded SARS-CoV-2 (COVID-19) mRNA-1273 vaccine 07/26/20 R ecorded SARS-CoV-2 (COVID-19) mRNA-1273 vaccine 06/28/20 R ecorded tetanus-diphtheria toxoids (Td) 07/04/10 Recorded 1Result Comment: [facility] [id number] Medications acetaminophen 650 mg oral tablet, extended release 1 tablet, By Mouth, Every 8 hours, PRN NEEDED FOR FEVER, # 90 tablet, 5 Refills, Maintenance, 11/02/24 7:30:00 PM EDT, [facility] #[id number], 170, cm, 05/12/24 9:31:00 EST, Height Start Date: 11/02/24 Status: Ordered Medication Dispense Status: Completed Quantity: 90.0 Unit: tablet Total Allowed Fills: 1 Fills Dispensed: 0 B 100 Complex oral tablet 1 tablet, By Mouth, Daily, # 100 tablet, 0 Refills, Maintenance, 08/29/21 2:12:00 PM EST, Tablet, Partial fill upon patient request if the prescription is for a schedule II opioid drug. Start Date: 08/29/21 Status: Ordered Medication Dispense Status: Completed Quantity: 100.0 Unit: tablet Total Allowed Fills: 1 Fills Dispensed: 0 Calcium Carbonate By Mouth, Daily, 0 Refills, Maintenance, 08/29/21 2:12:00 PM EST, Partial fill upon patient request if the prescription is for a schedule II opioid drug. Start Date: 08/29/21 Status: Ordered Medication Dispense Status: Completed Total Allowed Fills: 1 Fills Dispensed: 0 clonazePAM 0.5 mg oral tablet 1 tablet, By Mouth, 2 times a day, PRN NEEDED FOR ANXIETY, # 14 tablet, 0 Refills, Maintenance, 03/17/25 12:28:00 PM EDT, [facility]/pharmacy #[id number], 170, cm, 02/14/25 11:10:00 EDT, Height, 62.4, kg, 02/14/25 11:10:00 EDT, Dry Weight Start Date: 03/17/25 Stop Date: 03/24/25 Status: Ordered Medication Dispense Status: Completed Quantity: 14.0 Unit: tablet Total Allowed Fills: 1 Fills Dispensed: 0 gabapentin 100 mg oral capsule 200 mg, 2, capsule, 2 times a day, TAKE 1 CAPSULE BY MOUTH TWICE DAILY Start Date: 05/12/24 Status: Ordered Medication Dispense Status: Completed Total Allowed Fills: 1 Fills Dispensed: 0 ibuprofen 200 mg oral tablet 2, tablet, By Mouth, 2 times a day, PRN, # 120 tablet, Refills 1, Maintenance, NEEDED FOR PAIN, 04/22/25 3:30:00 PM EDT, Route to Pharmacy Electronically, [id number], 170, cm, 02/14/25 11:10:00 EDT, Height, 62.4, kg, 02/14/25 11:10:00 EDT, Dry Weight Start Date: 04/22/25 Status: Ordered Medication Dispense Status: Completed Quantity: 120.0 Unit: tablet Total Allowed Fills: 1 Fills Dispensed: 0 Misc Rx THC 5mg and CBD 100mg at night, Refills 0, Maintenance, 02/14/25 11:50:00 AM EDT, Supply Start Date: 02/14/25 Status: Ordered Medication Dispense Status: Completed Total Allowed Fills: 1 Fills Dispensed: 0 Vitamin C = 500 mg, By Mouth, Daily, 0 Refills, Maintenance, 03/21/22 9:48:00 AM EDT, Partial fill upon patient request if the prescription is for a schedule II opioid drug. Start Date: 03/21/22 Status: Ordered Medication Dispense Status: Completed Total Allowed Fills: 1 Fills Dispensed: 0 Vitamin D3 1000 intl units oral tablet 1 tablet = 25 mcg, By Mouth, Daily, # 30 tablet, 0 Refills, Maintenance, 08/29/21 2:12:00 PM EST, Tablet, Partial fill upon patient request if the prescription is for a schedule II opioid drug. Start Date: 08/29/21 Status: Ordered Medication Dispense Status: Completed Quantity: 30.0 Unit: tablet Total Allowed Fills: 1 Fills Dispensed: 0 Zinc = 140 mg, By Mouth, Daily, 0 Refills, Maintenance, 08/29/21 2:11:00 PM EST, Partial fill upon patientrequest if the prescription is for a schedule II opioid drug. Start Date: 08/29/21 Status: Ordered Medication Dispense Status: Completed Total Allowed Fills: 1 Fills Dispensed: 0 Problem List Condition Confirmation Course Effective Dates Status H ealth Status Informant Borderline personality disorder Confirmed Active Chronic kidney disease, stage 3a- 09/2021, follow up prn 1, 2, 3 Confirmed Active Former tobacco use 4 Confirmed Active Fibromyalgia Confirmed Active Generalized anxiety disorder Confirmed Active H/O optic neuritis- isolated event around 2008 5 Confirmed Active S/P ACL repair 6 Confirmed Active Memory impairment 7 Confirmed Active Paresthesias-Chronic no etiology. Sees neurology Confirmed Active Rectal prolapse- 2019-robotic sigmoid colectomy with colorectal anastomosis and suture rectopexy and colonoscopy with polypectomies 01/21/[address] Segal. Pathology consistent with diverticular disease and hyperplastic polyps 8 Confirmed Active Mild recurrent major depression- -use to have psychiatry Confirmed Active Vitamin D deficiency Confirmed Active 1- 09/2021, follow up prn , follow up prn 3Per chart review meets GFR criteria 4quit 2020 5Follows with neurology 6Right knee 7Memory impairment versus depression/other mental health concerns. Please see note documented 11/26/2023 Neurology for full HPI and exam. MOCA score today was 27/30 8robotic sigmoid colectomy with colorectal anastomosis and suture rectopexy and colonoscopy with polypectomies 01/21/[address] Segal. Pathology consistent with diverticular disease and hyperplastic polyps Social History Social History Type Response Sexual Preferred pronoun: S he/her. Tobacco Use: occassional. Sex Sex Representation Female (finding) Patient Care team information Care Team Personnel Name: Amaya Johnson MD Position: [facility] Physician - Primary Care Member Role: PCP Address: [facility] [place] [address]- [place] Tele[employer]: Name: Yunior Theodore DO Position: [facility] Renal MD Member Role: [employer] Physician Address: [address] [place] [address] [address] [facility] [place] [address]- Telecom: Care Team Related Persons Name: PATIENT STATES, NO ONE Name: DIXON RUSSO Name: JOVANY RUSSO Name: MARGARITA SHANNON Name: LEAH LUBIN Name: MILTON TY Insurance Providers Guarantor name[facility] Plan Information #: 1 Payer: [employer] [place] Payer Identifier: NA Member Number: [id number] Group Number: [id number] Subscriber Identifier: ALENA Relationship to Subscriber: self Coverage Type: Medicaid (Managed Care) Coverage Verification Date: NA Telecom: NA Address: NA
--- NOTE | ~2025-05-25 | XR_ITS ---
EXAMINATION: XR HIP, LEFT CLINICAL INFORMATION: M25.552 - Pain in left hip COMPARISON: None available. TECHNIQUE: Two views of the left hip. FINDINGS: Left total hip arthroplasty in expected position alignment. Intact hardware. No suspicious perihardware lucency. No acute periprosthetic fracture. Mild right hip arthritis. SI joints and symphysis pubis are intact. No acute pelvic fracture seen. No suspicious bony lesion. No abnormal soft tissue calcification. Surgical clips projected over the pelvis. XR/XR hip LT min 2V IMPRESSION: Left total hip arthroplasty, with no evidence of hardware failure. No acute osseous findings Mild right hip arthritis. Electronically signed by: Marino Page MD 05/25/2025 03:15 PM YVETTE
== END 2025-05-25 09:21 | disposition home or self-care (01) ==
LOC: HO.HOSX 09:20
PROVIDERS: PCP Internal Medicine; Visit Provider Physician Assistant
DX: M25.552 Pain in left hip (principal); Z96.642 Presence of left artificial hip joint
CPT/HCPCS: 73502; 99212

== ENCOUNTER → 2025-05-25 09:41 | Outpatient (BNV) | payer OTHER, SELFPAY | PROVIDERS: PCP Internal Medicine; Visit Provider Radiology Diagnostic Ultrasound | DX: M25.552 Pain in left hip (principal) | CPT/HCPCS: 73502 ==